=== PATIENT | female | born 1955 | race Caucasian/White ===

== ENCOUNTER 2018-09-17 11:40 | Inpatient (IN) ==
[2018-09-17] MEDS ORDERED: Albuterol 2.5 MG/3 ML NEBULIZER IH ONE (11:59)
[2018-09-17] MEDS ORDERED: cefOXitin 2,000 MG in Water for inj. (sterile) 20 ML 20 ML IVP ONE (11:59)
[2018-09-17] MEDS ORDERED: Ringers Solution, Lactated 1,000 ML IVC SCH (12:00)
[2018-09-17] MEDS ORDERED: Albuterol 2.5 MG/3 ML NEBULIZER ONE (12:04)
--- NOTE | 2018-09-17 12:29 | Anesthesia Evaluation PreOp ---
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: Denies Any Significant HX Other Medical History: Diabetes Type II, GERD, Other (Hx left breast cancer) Anesthesia History: No Prior Anesthetic Complications, Past Anesthesia (c section x 2 , daniella, hysterectomy, colonoscopy,) : No Alcohol Use: none Drug use: none Medications and Allergies Furosemide [Lasix] 40 mg PO DAILY PRN 09/11/16 [History] Gabapentin [Neurontin] 300 mg PO TID 09/11/16 [History] GlipiZIDE [Glipizide Xl] 5 mg PO DAILY 09/11/16 [History] Lisinopril 30 mg PO DAILY 09/11/16 [History] Losartan Potassium [Cozaar] 100 mg PO DAILY 09/11/16 [History] Metoprolol Tartrate [Lopressor] 50 mg PO DAILY 09/11/16 [History] Omeprazole 20 mg PO DAILY 09/11/16 [History] Potassium Chloride [Klor-Con 10] 10 meq PO DAILY 09/11/16 [History] Albuterol Sulfate [Ventolin Hfa] 18 gm IH PRN PRN 10/16/16 [History] Tiotropium [Spiriva] 1 puff IH DAILY #30 capsule 10/24/16 [Rx] Aspirin [Lo-Dose Aspirin EC] 1 tab PO DAILY #30 tablet. 12/02/17 [Rx] Oxycodone HCl/Acetaminophen [Percocet 5-325 mg Tablet] 1 each PO Q6H PRN 05/07/18 [History] Linagliptin [Tradjenta] 5 mg DAILY 09/17/18 [History] Allergy/AdvReac Type Severity Reaction Status Date / Time Iodinated Contrast- Oral and Allergy Hives Verified 05/07/18 11:40 IV Dye [Iodinated Contrast Media - Oral and] tetanus and diphtheria Allergy SWELLING Verified 05/07/18 11:40 toxoids - Meds/Allergy Pre-op Review Medications Reviewed: Yes Allergies Reviewed: Yes Beta Blockers on Current Med List: Yes (metoprolol) If Beta Blockers taken, Date/Time (Last Dose taken): 08 Anesthesia Results - Labs Laboratory Tests 09/11/18 09/11/18 09/11/18 10:40 10:40 10:40 WBC 6.7 Hgb 17.0 H Hct 49.0 H Plt Count 154 Sodium 134 L Potassium 4.1 Chloride 97 L Carbon Dioxide 29 BUN 14 Creatinine 1.03 Est GFR (Non-Af Amer) 54 L Hemoglobin A1c 6.6 H - Imaging EKG: report reviewed (SINUS BRADYCARDIA MODERATE T-WAVE ABNORMALITY, CONSIDER LATERAL ISCHEMIA) Anesthesia Exam Vital Signs/O2 Sat/Glucose, Most Recent Temp Pulse Resp BP Pulse Ox 98.6 F 65 18 133/75 95 09/17/18 12:05 09/17/18 12:05 09/17/18 12:05 09/17/18 12:05 09/17/18 12:05 Blood Glucose* 107 Weight: 90 kg NPO (# of Hours): > 8 hr - HEENT Pupil (Motor): Pupils equal Mallampati: II Teeth: Edentulous - 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
[2018-09-17] MEDS ORDERED: *HR* Propofol 200 MG/20 ML VIAL IVP ONE ×2 (12:41→12:45)
[2018-09-17] MEDS ORDERED: *HR* FentaNYL (PF) 100 MCG/2 ML VIAL ONE (12:45)
[2018-09-17] MEDS ORDERED: Lidocaine -MPF 2% 2 ML VIAL ONE (12:45)
[2018-09-17] MEDS ORDERED: Dexamethasone 4 MG/ML VIAL ONE (12:45)
[2018-09-17] MEDS ORDERED: *HR* Rocuronium Bromide 50 MG/5 ML VIAL ONE (12:45)
[2018-09-17] MEDS ORDERED: *HR* Succinylcholine 200 MG/10 ML VIAL IVP ONE (12:45)
[2018-09-17] MEDS ORDERED: *HR* Midazolam HCl 2 MG/2 ML VIAL ONE (12:45)
[2018-09-17] MEDS ORDERED: Ondansetron 4 MG/2 ML VIAL ONE (12:45)
[2018-09-17] MEDS ORDERED: Famotidine 20 MG/2 ML VIAL IVP ONE (12:47)
[2018-09-17] MEDS ORDERED: Acetaminophen IV 1,000 MG/100 ML INFUS..BTL IVPB ONE (12:47)
[2018-09-17] MEDS ORDERED: Gabapentin 300 MG CAPSULE PO ONE (12:47)
[2018-09-17] MEDS ORDERED: *HR* Labetalol 20 MG/4 ML SYRINGE IVP PRN (12:48)
[2018-09-17] MEDS ORDERED: *HR* Promethazine 25 MG/ML VIAL IVP PRN (12:48)
[2018-09-17] MEDS ORDERED: *HR* OxyCODONE Immed Rel 5 MG TABLET PO PRN (12:48)
[2018-09-17] MEDS ORDERED: Ondansetron 4 MG/2 ML VIAL IVP ONE (12:48)
[2018-09-17] MEDS ORDERED: Albuterol 2.5 MG/3 ML NEBULIZER IH PRN (12:48)
--- NOTE | 2018-09-17 12:58 | History & Physical Report ---
Date of Encounter: 09/17/18 Time of Encounter: 12:57 24 Hour HP Update - Instructions Instructions: If the History and Physical is less than 30 days old and was completed prior to A.M. admission and or procedure and has NOT been updated on calendar day of procedure please complete this update prior to performing procedure. - Update Patient reports changes in Medical Condition: No Changes in examination, assessment, or condition: No Changes in Medication: No Preop tests/diagnostics Reviewed: Yes Surgery Remains Indicated: Yes Consent for Planned Operative Procedure(s) Verified: Yes - Pre-Operative Checklist Preoperative Checklist Indicated: Yes Prophylactic Antibiotic Ordered: Yes Home Medications Include Beta David: No
[2018-09-17] MEDS ORDERED: Neostigmine Methylsulfate 3 MG/3 ML SYRINGE ONE (13:00)
[2018-09-17] MEDS ORDERED: SUGAMMADEX SODIUM 500 MG/5 ML VIAL IV ONE (15:38)
[2018-09-17] MEDS ORDERED: *HR* PHENYLEPHRINE 1,000 MCG/10 ML SYRINGE IVP ONE (16:10)
[2018-09-17] MEDS: *HR* HYDROmorphone (PF) 1 MG/ML SYRINGE IVP PRN ×2 (17:07→17:14)
--- NOTE | 2018-09-17 17:35 | Anesthesia Evaluation Post Op ---
Date of Encounter: 09/17/18 Time of Encounter: 17:35 - Vital Signs Vital Signs: Last Vital Signs Temp 99.5 F 09/17/18 17:31 Pulse 80 09/17/18 17:31 Resp 12 09/17/18 17:31 BP 137/71 09/17/18 17:31 Pulse Ox 97 09/17/18 17:31 - Lungs Lungs: Clear Ascult./Percussion - Airway Airway: Non-obstructed - Cardiovascular Regular Rate - Mental Status Mental Status: Alert & Oriented, Answers Appropriately - Pain Pain Scale: 2 - Nausea Vomiting Nausea Vomiting: Not Present - Hydration Hydration: NPO - Discharge PostOp Status: Transfer Patient to floor
[2018-09-17] MEDS ORDERED: Naloxone 0.4 MG/ML INJ IVP PRN (18:23)
[2018-09-17] MEDS ORDERED: Ondansetron 4 MG/2 ML VIAL IVP PRN (18:23)
[2018-09-17] MEDS: 0.9 % Sodium Chloride 1,000 ML IVC SCH (18:44)
[2018-09-17] MEDS: OXYCODONE Oral CONC 10 MG/0.5 ML ORAL.SYG SL PRN (18:44)
[2018-09-17 19:13] LABS: Basophils % 0.4 %; Eosinophils % 0.1 %; Hematocrit 47.2 % (35.3-44.9); Hemoglobin 15.8 g/dL (11.5-15.4); Immature Granulocytes % 0.4 % (0-4); Lymphocytes # 0.2 K/mcL (0.6-4.6); Lymphocytes % 3.6 %; Mean Corpuscular HGB Conc 33.5 g/dL (31.6-35.5); Mean Corpuscular Hemoglobin 30.8 pg (28.0-33.3); Mean Platelet Volume 9.7 fL (9.4-12.4); Monocytes # 0.1 K/mcL (0.0-1.3); Monocytes % 2.1 %; Neutrophils # 6.3 K/mcL (1.6-8.9); Platelet Count 108 K/mcL (140-400); Red Blood Count 5.13 M/mcL (3.82-4.97); Red Cell Distribution Width 12.4 % (11.5-14.5); Segmented Neutrophils % 93.4 %
[2018-09-17] MEDS: Insulin LISPRO 300 UNITS/3 ML VIAL SQ SCH (23:52)
[2018-09-17] MEDS: Ketorolac 15 MG/ML VIAL IVP SCH (23:52)
[2018-09-17] MEDS: Nicotine 21 MG PATCH.TD24 TD SCH (23:53)
[2018-09-18] MEDS: OXYCODONE Oral CONC 10 MG/0.5 ML ORAL.SYG SL PRN ×4 (01:37→20:59)
[2018-09-18] MEDS: Ketorolac 15 MG/ML VIAL IVP SCH ×3 (05:45→17:37)
[2018-09-18 06:50] LABS: BUN/Creatinine Ratio 15 (6-26); Blood Urea Nitrogen 16 mg/dL (8-23); Calcium 8.1 mg/dL (8.6-10.3); Carbon Dioxide 23 mEq/L (23-29); Chloride 98 mEq/L (98-107); Glucose 225 mg/dL (70-105); Osmolality,Calculated 280 (280-300); Sodium 131 mEq/L (136-145); eGFR For Non-African Americans 50 (> 60)
[2018-09-18] MEDS: Insulin LISPRO 300 UNITS/3 ML VIAL SQ SCH ×4 (09:28→21:01)
[2018-09-18] MEDS: 0.9 % Sodium Chloride 1,000 ML IVC SCH (09:29)
[2018-09-18] MEDS: Nicotine 21 MG PATCH.TD24 TD SCH (09:30)
--- NOTE | 2018-09-18 11:02 | General Surgery Progress Note ---
Date of Encounter: 09/18/18 Time of Encounter: 09:00 - Assessment and Plan (1) Colon polyp Current Visit: Yes Status: Acute Tubular adenoma of the descending colon which was tattooed. She is status post descending colon resection by Dr. Rivera on 09/17/2017. She is recovering remarkably well. She is tolerating a diet and is having bowel movements. We will plan for discharge in the next 24 to 48 hours pending clinical course. In the interim, Plan: Continue supportive care and discomfort management while awaiting full return of bowel function Continue G.I. and DVT prophylaxis Incentive spirometry 10 times every hour while awake Out of bed to chair TID, do not offer meal trays while in the bed Activity as tolerated Apply ice 20 minutes on 20 minutes off as needed Qualifiers: Colon polyp type: adenomatous Colon location: descending Qualified Code(s): D12.4 - Benign neoplasm of descending colon Subjective Patient reports: no new complaints, still having pain, pain is less, tolerating liquids well, flatus, bowel movement, afebrile Objective Vital Signs - Last 8 Hours Temp Pulse Resp BP Pulse Ox 09/18/18 07:28 98.0 F 67 17 128/72 91 09/18/18 03:29 98.5 F 86 16 123/73 95 Intake and Output 09/17/18 09/18/18 09/18/18 23:59 07:59 15:59 Intake Total 1480 / 1480 Output Total 2 / 2 Balance -10 / 10 1478 / 1478 Intake: IV Fluids 1000 / 1000 0.9 % Sodium Chloride 1,000 ML 1000 / 1000 @ 75 mls/hr IVC .[id number] MARY Rx #:[id number] Oral 480 / 480 Output: Urine 2 / 2 Estimated Blood Loss Other: Meal clears Percent of Meal Consumed 100% Stool Size Small Small Stool Consistency loose soft # Voids 1 # Bowel Movements 2 Weight 92 kg Blood Glucose* 350 216 213 Patient Weight 09/18/18 23:59 Weight 92 kg - General physical appearance no distress - Eyes normal ocular movement - ENT normal nares, normal mucosa, atraumatic, normocephalic - Neck Neck exam: trachea midline - Respiratory normal expansion, normal respiratory effort - Cardiovascular Cardiovascular exam: Present: RRR - Abdomen Abdomen: Present: bowel sounds present, soft, tender (Expected postoperative) - Integumentary no rash - Neurologic normal sensation - Musculoskeletal normal posture - Psychiatric oriented to time, oriented to person, oriented to place, speech is normal, mem ory intact - Labs 09/17/18 18:57 09/18/18 05:55 Diabetes panel 09/18/18 Range/Units 05:55 Sodium 131 L (136-145) mEq/L Potassium 4.0 (3.5-5.1) mEq/L Chloride 98 (98-107) mEq/L Carbon Dioxide 23 (23-29) mEq/L BUN 16 (8-23) mg/dL Creatinine 1.10 (0.60-1.20) mg/dL Glucose 225 H (70-105) mg/dL Calcium 8.1 L (8.6-10.3) mg/dL Calcium panel 09/18/18 Range/Units 05:55 Calcium 8.1 L (8.6-10.3) mg/dL Pituitary panel 09/18/18 Range/Units 05:55 Sodium 131 L (136-145) mEq/L Potassium 4.0 (3.5-5.1) mEq/L Chloride 98 (98-107) mEq/L Carbon Dioxide 23 (23-29) mEq/L BUN 16 (8-23) mg/dL Creatinine 1.10 (0.60-1.20) mg/dL Glucose 225 H (70-105) mg/dL Calcium 8.1 L (8.6-10.3) mg/dL Adrenal panel 09/18/18 Range/Units 05:55 Sodium 131 L (136-145) mEq/L Potassium 4.0 (3.5-5.1) mEq/L Chloride 98 (98-107) mEq/L Carbon Dioxide 23 (23-29) mEq/L BUN 16 (8-23) mg/dL Creatinine 1.10 (0.60-1.20) mg/dL Glucose 225 H (70-105) mg/dL Calcium 8.1 L (8.6-10.3) mg/dL - VTE Documentation of Mechanical Device: Intermittent pneumatic compression device Consult Discharge Plan - Plan Referrals: Tong Rivera DO [Partnered Physician] - 09/30/18 9:35 am Gisele Herzog CNP [Primary Care Provider] -
[2018-09-18] MEDS ORDERED: Simethicone 80 MG TAB.CHEW PO PRN (14:56)
[2018-09-18] MEDS ORDERED: Furosemide 40 MG TABLET PO PRN (16:04)
[2018-09-18] MEDS: Gabapentin 300 MG CAPSULE PO SCH (21:04)
[2018-09-19] MEDS: Ketorolac 15 MG/ML VIAL IVP SCH ×3 (01:54→12:56)
[2018-09-19] MEDS: OXYCODONE Oral CONC 10 MG/0.5 ML ORAL.SYG SL PRN ×2 (08:20→12:56)
[2018-09-19] MEDS: Nicotine 21 MG PATCH.TD24 TD SCH (08:21)
[2018-09-19] MEDS: Gabapentin 300 MG CAPSULE PO SCH (08:21)
[2018-09-19] MEDS: Insulin LISPRO 300 UNITS/3 ML VIAL SQ SCH (08:22)
[2018-09-19] MEDS ORDERED: Aspirin Enteric Coated 81 MG Tablet PO SCH (09:00)
[2018-09-19 09:24] LABS: Basophils % 0.3 %; Eosinophils # 0.1 K/mcL (0.0-0.6); Eosinophils % 1.1 %; Hemoglobin 14.8 g/dL (11.5-15.4); Immature Granulocytes % 0.6 % (0-4); Lymphocytes # 0.7 K/mcL (0.6-4.6); Lymphocytes % 11.1 %; Mean Corpuscular HGB Conc 33.6 g/dL (31.6-35.5); Mean Corpuscular Hemoglobin 30.6 pg (28.0-33.3); Mean Corpuscular Volume 90.9 fL (83.0-100.0); Mean Platelet Volume 9.9 fL (9.4-12.4); Monocytes # 0.6 K/mcL (0.0-1.3); Neutrophils # 4.8 K/mcL (1.6-8.9); Platelet Count 121 K/mcL (140-400); Red Blood Count 4.84 M/mcL (3.82-4.97); Red Cell Distribution Width 12.6 % (11.5-14.5); Segmented Neutrophils % 77.9 %
[2018-09-19 09:40] LABS: BUN/Creatinine Ratio 13 (6-26); Blood Urea Nitrogen 12 mg/dL (8-23); Calcium 9.3 mg/dL (8.6-10.3); Carbon Dioxide 32 mEq/L (23-29); Chloride 100 mEq/L (98-107); Glucose 145 mg/dL (70-105); Magnesium 1.8 mg/dL (1.6-2.6); Osmolality,Calculated 288 (280-300); Phosphorous 1.9 mg/dL (2.7-4.5); Potassium 3.7 mEq/L (3.5-5.1); Sodium 138 mEq/L (136-145); eGFR For Non-African Americans > 60 (> 60)
--- NOTE | 2018-09-19 09:48 | Discharge Summary ---
Orders not resulted at time of discharge: Pending orders 09/17/18 16:38 Surgical Pathology [PTH] Routine 09/20/18 04:00 Basic Metabolic Panel AM 0400 Complete Blood Count [HEME] AM 0400 Magnesium AM 0400 Phosphorous AM 0400 09/21/18 04:00 Basic Metabolic Panel AM 0400 Complete Blood Count [HEME] AM 0400 Magnesium AM 0400 Phosphorous AM 0400 09/22/18 04:00 Basic Metabolic Panel AM 0400 Complete Blood Count [HEME] AM 0400 Magnesium AM 0400 Phosphorous AM 0400 Date of Encounter: 09/19/18 Time of Encounter: 13:08 - Discharge Diagnosis (1) Colon polyp Priority: Primary Status: Acute Qualifiers: Colon polyp type: adenomatous Colon location: descending Qualified Code(s): D12.4 - Benign neoplasm of descending colon General Surgery Exam Initial Vital Signs Temp Pulse Resp BP Pulse Ox 98.6 F 65 18 133/75 95 09/17/18 12:05 09/17/18 12:05 09/17/18 12:05 09/17/18 12:05 09/17/18 12:05 Vital Signs Temp Pulse Resp BP Pulse Ox 09/19/18 12:08 97.9 F 71 16 165/82 93 09/19/18 07:34 97.5 F L 95 18 169/83 92 09/19/18 03:56 81 163/88 09/19/18 03:30 97.7 F 93 17 188/91 90 09/18/18 23:26 97.7 F 84 18 152/80 91 09/18/18 19:03 98.0 F 98 17 163/84 91 09/18/18 16:50 98.2 F 75 18 157/80 91 Intake and Output 09/18/18 09/19/18 09/19/18 23:59 07:59 15:59 Intake Total 120 / 120 1120 / 1120 Balance 120 / 120 1120 / 1120 Intake: IV Fluids 1000 / 1000 Oral 120 / 120 120 / 120 Other: Meal Dinner Breakfast Percent of Meal Consumed 100% 100% # Voids 1 1 Blood Glucose* 196 145 128 VITAL SIGNS: Reviewed. See [facility] GENERAL: In no apparent distress. HEENT: Normocephalic, atraumatic, pupils are equal and reactive, extraocular motions intact, oropharynx is pink and moist, there is no neck adenopathy or JVD noted. CHEST/RESPIRATORY: The thorax is free from signs of trauma. Lung sounds: clear to auscultation, normal respiratory effort CARDIAC: Regular rate and rhythm. Normal S1 and S2, without murmurs, gallops, or rubs. VASCULAR: No Edema. 2+ peripheral pulses. ABDOMEN: soft, expected postoperative tenderness, active bowel sounds INCISION: Surgical incision is clean, dry, and intact. There are no signs of cellulitis or infection noted. MUSCULOSKELETAL: Good range of motion of all major joints. Extremities without clubbing, cyanosis or edema. NEUROLOGIC EXAM: Alert and oriented x 3. Speech normal. Follows commands. PSYCHIATRIC: Mood normal. SKIN: No rash or lesions. - Hospital Course Hospital course: Ms. Faye is a 63 year old female who presented for elective descending colectomy due to unresectable descending colon polyp. Her hospital course has been uncomplicated. She is ambulating and voiding without difficulty, tolerating a diet without nausea or vomiting, vital signs are stable, and she is afebrile. We will begin discharge planning to home with a follow-up in approximately 2 weeks. She is advised to continue her home chronic narcotics and provided with an additional prescription for ibuprofen and Colace. - Time Spent with Patient Total time spent providing and/or coordinating discharge services: - Discharge Medications Prescriptions: New Ibuprofen 800 mg PO Q8H PRN #30 tablet PRN Reason: Postsurgical pain Docusate Sodium [Colace] 100 mg PO BID PRN #30 capsule PRN Reason: Contstipation Continue Potassium Chloride [Klor-Con 10] 10 meq PO DAILY PRN PRN Reason: LOW POTASSIUM Metoprolol Tartrate [Lopressor] 50 mg PO DAILY Furosemide [Lasix] 40 mg PO DAILY PRN PRN Reason: Fluid Retention Albuterol Sulfate [Ventolin Hfa] 2 puff IH Q6H PRN PRN Reason: Shortness Of Breath Oxycodone HCl/Acetaminophen [Percocet 5-325 mg Tablet] 1 each PO Q6H PRN PRN Reason: Pain Linagliptin [Tradjenta] 5 mg DAILY Aspirin [Lo-Dose Aspirin EC] 81 mg PO DAILY Fluticasone/Vilanterol [Breo Ellipta 200-25 Mcg INH] 1 puff IH DAILY Gabapentin 600 mg PO TID glipiZIDE [Glipizide] 10 mg PO BID Losartan/Hydrochlorothiazide [Losartan-Hctz 100-25 mg Tab] 1 tab PO DAILY raNITIdine HCl [Zantac] 150 mg PO BID Polyethylene Glycol 3350 17 gm PO DAILY PRN PRN Reason: Constipation Amlodipine Besylate 5 mg PO DAILY [place]-3/Dha/Epa/Fish Oil [[facility]vs Fish Oil 1,000 mg Softgel] 1 cap PO DAILY Cholecalciferol (D-3) [Vitamin D] 1,000 unit PO DAILY Atorvastatin Calcium [Lipitor] 20 mg PO DAILY Home Medications: Furosemide [Lasix] 40 mg PO DAILY PRN 09/11/16 [History] Metoprolol Tartrate [Lopressor] 50 mg PO DAILY 09/11/16 [History] Potassium Chloride [Klor-Con 10] 10 meq PO DAILY PRN 09/11/16 [History] Albuterol Sulfate [Ventolin Hfa] 2 puff IH Q6H PRN 10/16/16 [History] Oxycodone HCl/Acetaminophen [Percocet 5-325 mg Tablet] 1 each PO Q6H PRN 05/07/18 [History] Linagliptin [Tradjenta] 5 mg DAILY 09/17/18 [History] Amlodipine Besylate 5 mg PO DAILY 09/18/18 [History] Aspirin [Lo-Dose Aspirin EC] 81 mg PO DAILY 09/18/18 [History] Atorvastatin Calcium [Lipitor] 20 mg PO DAILY 09/18/18 [History] Cholecalciferol (D-3) [Vitamin D] 1,000 unit PO DAILY 09/18/18 [History] Fluticasone/Vilanterol [Breo Ellipta 200-25 Mcg INH] 1 puff IH DAILY 09/18/18 [History] Gabapentin 600 mg PO TID 09/18/18 [History] Losartan/Hydrochlorothiazide [Losartan-Hctz 100-25 mg Tab] 1 tab PO DAILY 09/18/18 [History] [place]-3/Dha/Epa/Fish Oil [Cvs Fish Oil 1,000 mg Softgel] 1 cap PO DAILY 09/18/18 [History] Polyethylene Glycol 3350 17 gm PO DAILY PRN 09/18/18 [History] glipiZIDE [Glipizide] 10 mg PO BID 09/18/18 [History] raNITIdine HCl [Zantac] 150 mg PO BID 09/18/18 [History] Docusate Sodium [Colace] 100 mg PO BID PRN #30 capsule 09/19/18 [Rx] Ibuprofen 800 mg PO Q8H PRN #30 tablet 09/19/18 [Rx] Allergies/Adverse Reactions: Allergy/AdvReac Type Severity Reaction Status Date / Time Iodinated Contrast- Oral and Allergy Hives Verified 05/07/18 11:40 IV Dye [Iodinated Contrast Media - Oral and] tetanus and diphtheria Allergy SWELLING Verified 05/07/18 11:40 toxoids Date of admission: 09/17/18 17:54 Primary care physician: Gisele Herzog Consults: 09/17/18 18:03 Consult to Physician Extender [CONS] Routine Reason for SW Consult: Reccomended O2 at HS but patient states she can not afford it so she doesn't wear it Discharging clinician: Tong Vega) Anticipated date of discharge: 09/19/18 Labs on day of discharge: Labs from last 24 hours 09/19/18 09/19/18 09/18/18 08:46 08:46 19:03 WBC 6.2 RBC 4.84 Hgb 14.8 Hct 44.0 MCV 90.9 MCH 30.6 MCHC 33.6 RDW 12.6 Plt Count 121 L MPV 9.9 Immature Gran % 0.6 Seg Neutrophils % 77.9 Lymphocytes % 11.1 Monocytes % 9.0 Eosinophils % 1.1 Basophils % 0.3 Neutrophils # 4.8 Lymphocytes # 0.7 Monocytes # 0.6 Eosinophils # 0.1 Basophils # 0.0 Sodium 138 Potassium 3.7 Chloride 100 Carbon Dioxide 32 H BUN 12 Creatinine 0.89 Est GFR ( Amer) > 60 Est GFR (Non-Af Amer) > 60 BUN/Creatinine Ratio 13 Glucose 145 H POC Glucose 196 H Calculated Osmolality 288 Calcium 9.3 Phosphorus 1.9 L Magnesium 1.8 09/18/18 09/18/18 09/18/18 16:54 12:12 10:39 WBC RBC Hgb Hct MCV MCH MCHC RDW Plt Count MPV Immature Gran % Seg Neutrophils % Lymphocytes % Monocytes % Eosinophils % Basophils % Neutrophils # Lymphocytes # Monocytes # Eosinophils # Basophils # Sodium Potassium Chloride Carbon Dioxide BUN Creatinine Est GFR ( Amer) Est GFR (Non-Af Amer) BUN/Creatinine Ratio Glucose POC Glucose 167 H 139 H 213 H Calculated Osmolality Calcium Phosphorus Magnesium 09/17/18 23:32 WBC RBC Hgb Hct MCV MCH MCHC RDW Plt Count MPV Immature Gran % Seg Neutrophils % Lymphocytes % Monocytes % Eosinophils % Basophils % Neutrophils # Lymphocytes # Monocytes # Eosinophils # Basophils # Sodium Potassium Chloride Carbon Dioxide BUN Creatinine Est GFR ( Amer) Est GFR (Non-Af Amer) BUN/Creatinine Ratio Glucose POC Glucose 350 H Calculated Osmolality Calcium Phosphorus Magnesium - Patient Status Disposition: Home, Self-Care Condition: Good Functional capacity at discharge: independent ambulation Overall status at discharge: patient is progressing back to baseline - Discharge Instructions Instructions: Colectomy (DC), Laparoscopic Bowel Resection (DC) Follow Up With: Tong Rivera DO [Partnered Physician] - 09/30/18 9:35 am Gisele Herzog CNP [Primary Care Provider] - Additional Instructions: General Surgical Discharge Instructions 1. No pushing, pulling, or lifting greater than 15 lbs for 4 weeks (depending upon procedure). 2. You may shower beginning today, but no tub baths, soaking, or swimming for 2 weeks. 3. You may resume driving when you are off narcotics and are safe to react in a car. 4. Take ibuprofen every 8 hours for discomfort. If this does not relieve discomfort, you may take your normal at home dose of needed Percocet. Take narcotics as directed. Do not take more narcotics then directed and do not share your narcotics with any other person. Do not drink alcohol while on narcotics. 5. Take stool softeners (Colace) or a water based laxative (Miralax) while taking narcotics. You may hold for loose stools. 6. Report any fevers greater than 100.5F, increase abdominal discomfort, drainage that looks like pus, increased redness or pain at the surgical site, or any vomiting. 7. Report any pain in the calves, shortness of breath, or rapid heartbeat. 8. Follow-up in the office as directed. 9. If you were prescribed antibiotics, do not stop them without talking to your provider. - Diet and Activity Activity: increase activity as tolerated Diet: other (soft diet for 3- days then resume your normal diet as tolerated)
--- NOTE | 2018-09-19 11:35 | Operative Note ---
Date of procedure: 09/17/18 Pre-op diagnosis: Descending colon polyp Post-op diagnosis: other (Transverse colon polyp) Procedure: Robotic Transvere colectomy with stapled anastomosis Anesthesia: MEDHATA Surgeon: Tong Rivera Was there an patient care assistant present: Yes Relief Charge Nurse: Niki Duenas Estimated blood loss (cc): 25 Specimen: Transverse colon Condition: stable Disposition: floor Procedure in Detail: After informed consent, the patient was taken the operating placed in supine position. After adequate sedation and anesthesia the abdomen was prepped and draped. An incision was made to the patient's right of midline. A 12 mm cannula was placed. This was done under direct visualization. Once I had entered the abdomen and pneumoperitoneum was created. There were 2 additional 8 mm cannulas placed in the right anterior and posterior axillary lines. A third cannula was placed in the left lower quadrant. A 5 mm cannulas placed in the suprapubic region. The robot was docked over the patient's right hip. Once a camera was placed 2 additional cautery a grasper's were placed as was a vessel sealer. A tattoo monique was easily identified. Initially it was thought that the lesion was in the descending colon. I found that was in the distal transverse. Therefore this area was dissected free. The colon was stapled proximally and distally above and below the tattoo hamm. The mesentery was taken down with a vessel sealer. Once this is completed the transverse colon was approximated side by side. 2 enterotomies were created with robotic scissors. A 60 mm stapler was then placed into the colon to perform a [id number] functional end -to-end anastomosis. A common enterotomy was closed with 2 individual 2-0 silk sutures. Once her tied secured the omentum was tacked to the colon anastomosis. Once this completed a counterincision was made in the patient's right abdomen at the camera port. It was approximately 2 inches in width. The abdominal wall was spread and the transverse colon was removed. It was sent to pathology. It had been opened previously and the polyp was identified within the specimen. The fascia was closed with loop PDS suture. The 12 mm cannula site in the left lower quadrant was closed with 0 Vicryl. The skin was closed with melina. She tolerated the procedure well.
[2018-09-19 12:09] VITALS: BP 165/82
== END 2018-09-19 15:10 | disposition home or self-care (01) | DRG 331 ==
LOC: SAMDAY 11:40 → 3ANU 17:54
PROVIDERS: ADMIT Surgery; ATTEND Surgery

== ENCOUNTER 2020-08-01 09:15 | Inpatient (IN) ==
[2020-08-01 09:49] LABS: Hematocrit 39.3 % (35.3-44.9); Hemoglobin 12.2 g/dL (11.5-15.4); Mean Corpuscular Hemoglobin 24.8 pg (28.0-33.3); Mean Platelet Volume 9.5 fL (9.4-12.4); Platelet Count 146 K/mcL (140-400); Red Blood Count 4.91 M/mcL (3.82-4.97); Red Cell Distribution Width 16.7 % (11.5-14.5); White Blood Count 4.6 K/mcL (4.3-11.1)
[2020-08-01 09:54] LABS: INR 1.1; Prothrombin Time 12.4 Seconds (9.4-12.1)
[2020-08-01 09:57] LABS: Activated Partial Thrombo Time 27.5 Seconds (26.0-36.0)
[2020-08-01 09:59] LABS: Bilirubin,Urine Negative (Negative); Blood,Urine Negative (Negative); Clarity,Urine Clear (Clear); Color,Urine Light-Yellow (Yellow); Glucose,Urine (UA) Normal (Normal); Ketones,Urine Negative (Negative); Leukocyte Esterase,Urine Negative (Negative); Nitrite,Urine Negative (Negative); Protein,Urine Negative (Neg-Trace); Urobilinogen,Urine Normal (Normal)
[2020-08-01 10:10] LABS: BUN/Creatinine Ratio 10 (6-26); Blood Urea Nitrogen 9 mg/dL (8-23); Calcium 9.4 mg/dL (8.6-10.3); Carbon Dioxide 32 mEq/L (23-29); Chloride 86 mEq/L (98-107); Glucose 122 mg/dL (70-105); Osmolality,Calculated 258 (280-300); Potassium 4.2 mEq/L (3.5-5.1); Sodium 124 mEq/L (136-145); eGFR For African Americans > 60 (> 60); eGFR For Non-African Americans > 60 (> 60)
[2020-08-01 10:11] LABS: Troponin I < 0.03 ng/mL (< 0.04)
[2020-08-01] MEDS ORDERED: Ondansetron 4 MG/2 ML VIAL IVP PRN (13:46)
[2020-08-01] MEDS ORDERED: *HR* Dextrose 50 % in Water (Vial) 50 ML VIAL IVP PRN (13:46)
[2020-08-01] MEDS ORDERED: D5% in Water 1,000 ML IVC PRN (13:46)
[2020-08-01] MEDS ORDERED: Naloxone 0.4 MG/ML INJ IVP PRN (13:46)
[2020-08-01] MEDS ORDERED: Dextrose Gel 15 GM/37.5 ML TUBE PO PRN ×2 (13:46)
[2020-08-01] MEDS: 0.9 % Sodium Chloride 1,000 ML IVC SCH (15:15)
[2020-08-01] MEDS: Insulin LISPRO 300 UNITS/3 ML VIAL SUBQ SCH ×2 (17:37→21:15)
[2020-08-01] MEDS: *HR* Metoprolol 5 MG/5 ML VIAL IVP PRN (17:43)
[2020-08-01 18:42] LABS: Sodium, Urine 101.2 mEq/L
[2020-08-01] MEDS: *HR* OxyCODONE/APAP 5/325 TABLET PO PRN (18:43)
[2020-08-01 19:23] LABS: Bilirubin,Urine Negative (Negative); Blood,Urine Negative (Negative); Clarity,Urine Clear (Clear); Color,Urine Colorless (Yellow); Glucose,Urine (UA) Normal (Normal); Ketones,Urine Negative (Negative); Leukocyte Esterase,Urine Negative (Negative); Nitrite,Urine Negative (Negative); PH,Urine 7.5 pH Units (5.0-8.0); Protein,Urine Negative (Neg-Trace); Specific Gravity,Urine 1.009 (1.010-1.025); Urobilinogen,Urine Normal (Normal)
[2020-08-01] MEDS: OXcarbazepine 150 MG TABLET PO SCH (21:14)
[2020-08-02] MEDS: Acetaminophen 325 MG TABLET PO PRN ×2 (01:09→11:38)
[2020-08-02] MEDS: 0.9 % Sodium Chloride 1,000 ML IVC SCH (03:29)
[2020-08-02] MEDS: *HR* Metoprolol 5 MG/5 ML VIAL IVP PRN (05:16)
[2020-08-02 06:06] LABS: Basophils % 0.9 %; Eosinophils # 0.1 K/mcL (0.0-0.6); Eosinophils % 2.4 %; Hematocrit 36.5 % (35.3-44.9); Hemoglobin 11.4 g/dL (11.5-15.4); Immature Granulocytes % 0.2 % (0-4); Lymphocytes # 0.5 K/mcL (0.6-4.6); Lymphocytes % 10.9 %; Mean Corpuscular HGB Conc 31.2 g/dL (31.6-35.5); Mean Corpuscular Hemoglobin 24.5 pg (28.0-33.3); Mean Corpuscular Volume 78.3 fL (83.0-100.0); Mean Platelet Volume 9.2 fL (9.4-12.4); Monocytes # 0.5 K/mcL (0.0-1.3); Neutrophils # 3.4 K/mcL (1.6-8.9); Platelet Count 134 K/mcL (140-400); Red Blood Count 4.66 M/mcL (3.82-4.97); Red Cell Distribution Width 16.7 % (11.5-14.5); Segmented Neutrophils % 75.6 %; White Blood Count 4.5 K/mcL (4.3-11.1)
[2020-08-02 06:28] LABS: BUN/Creatinine Ratio 12 (6-26); Blood Urea Nitrogen 10 mg/dL (8-23); Calcium 9.1 mg/dL (8.6-10.3); Carbon Dioxide 28 mEq/L (23-29); Chloride 89 mEq/L (98-107); Glucose 83 mg/dL (70-105); Osmolality,Calculated 256 (280-300); Potassium 3.9 mEq/L (3.5-5.1); Sodium 124 mEq/L (136-145); eGFR For African Americans > 60 (> 60); eGFR For Non-African Americans > 60 (> 60)
[2020-08-02] MEDS: Gabapentin 300 MG CAPSULE PO SCH ×3 (07:53→20:48)
[2020-08-02] MEDS: Cyanocobalamin (B-12) 1,000 MCG TABLET PO SCH (07:53)
[2020-08-02] MEDS: *HR* OxyCODONE/APAP 5/325 TABLET PO PRN (07:53)
[2020-08-02] MEDS: Anastrozole 1 MG TABLET PO SCH (07:54)
[2020-08-02] MEDS: FLUoxetine 20 MG CAPSULE PO SCH (07:54)
[2020-08-02] MEDS: OXcarbazepine 150 MG TABLET PO SCH ×2 (07:54→20:41)
[2020-08-02] MEDS: Loratadine 10 MG TABLET PO SCH (07:55)
[2020-08-02] MEDS: Insulin LISPRO 300 UNITS/3 ML VIAL SUBQ SCH ×4 (07:55→20:48)
[2020-08-02] MEDS ORDERED: Aspirin Enteric Coated 81 MG Tablet PO SCH (09:00)
[2020-08-02] MEDS: Budesonide/Formoterol 160/4.5 1 PUFF INH IH SCH ×2 (10:26→22:22)
[2020-08-02] MEDS: Nicotine 21 MG PATCH.TD24 TD SCH (11:34)
[2020-08-02] MEDS: cloNIDine HCL 0.1 MG TABLET PO SCH ×2 (15:36→20:46)
[2020-08-02] MEDS ORDERED: Perflutren Lipid Microsphere 1.3 ML in 0.9 % Sodium Chloride 8.7 ML IVP PRN (17:59)
[2020-08-02] MEDS: hydrALAZINE 25 MG TABLET PO SCH (18:01)
[2020-08-02] MEDS: tiZANidine 4 MG TABLET PO SCH (20:45)
[2020-08-02] MEDS: traZODone 50 MG TABLET PO SCH (20:47)
[2020-08-02] MEDS ORDERED: 0.9 % Sodium Chloride 1,000 ML ONE (23:30)
[2020-08-02] MEDS ORDERED: 0.9 % Sodium Chloride 1,000 ML IVC ONE (23:59)
[2020-08-03] MEDS ORDERED: 0.9 % Sodium Chloride 1,000 ML IVC ONE (00:07)
[2020-08-03 02:11] LABS: Hematocrit 37.7 % (35.3-44.9); Hemoglobin 11.5 g/dL (11.5-15.4); Mean Corpuscular HGB Conc 30.5 g/dL (31.6-35.5); Mean Corpuscular Volume 78.7 fL (83.0-100.0); Platelet Count 159 K/mcL (140-400); Red Blood Count 4.79 M/mcL (3.82-4.97); Red Cell Distribution Width 16.8 % (11.5-14.5); White Blood Count 5.8 K/mcL (4.3-11.1)
[2020-08-03 02:48] LABS: BUN/Creatinine Ratio 11 (6-26); Blood Urea Nitrogen 12 mg/dL (8-23); Calcium 8.8 mg/dL (8.6-10.3); Carbon Dioxide 22 mEq/L (23-29); Chloride 92 mEq/L (98-107); Glucose 110 mg/dL (70-105); Magnesium 1.8 mg/dL (1.6-2.6); Osmolality,Calculated 258 (280-300); Phosphorous 3.9 mg/dL (2.7-4.5); Potassium 3.8 mEq/L (3.5-5.1); Sodium 124 mEq/L (136-145); eGFR For African Americans > 60 (> 60); eGFR For Non-African Americans 52 (> 60)
[2020-08-03] MEDS: Insulin LISPRO 300 UNITS/3 ML VIAL SUBQ SCH ×4 (07:29→19:55)
[2020-08-03] MEDS ORDERED: Furosemide 20 MG TABLET PO SCH (09:00)
[2020-08-03] MEDS: *HR* OxyCODONE/APAP 5/325 TABLET PO PRN ×2 (09:50→16:31)
[2020-08-03] MEDS: FLUoxetine 20 MG CAPSULE PO SCH (09:50)
[2020-08-03] MEDS: Sennosides/Docusate Sodium TABLET PO SCH (09:51)
[2020-08-03] MEDS: OXcarbazepine 150 MG TABLET PO SCH ×2 (09:51→19:55)
[2020-08-03] MEDS: Gabapentin 300 MG CAPSULE PO SCH ×3 (09:51→19:55)
[2020-08-03] MEDS: Nicotine 21 MG PATCH.TD24 TD SCH (09:53)
[2020-08-03] MEDS: Loratadine 10 MG TABLET PO SCH (09:53)
[2020-08-03] MEDS: hydrALAZINE 25 MG TABLET PO SCH ×4 (09:53→23:32)
[2020-08-03] MEDS: Cyanocobalamin (B-12) 1,000 MCG TABLET PO SCH (10:03)
[2020-08-03] MEDS: Anastrozole 1 MG TABLET PO SCH (10:38)
[2020-08-03] MEDS: Budesonide/Formoterol 160/4.5 1 PUFF INH IH SCH ×2 (10:43→20:07)
[2020-08-03] MEDS: traZODone 50 MG TABLET PO SCH (19:55)
[2020-08-03] MEDS: tiZANidine 4 MG TABLET PO SCH (19:55)
[2020-08-03] MEDS ORDERED: Melatonin 3 MG TABLET PO PRN (20:15)
[2020-08-04] MEDS: *HR* OxyCODONE/APAP 5/325 TABLET PO PRN ×2 (02:54→18:12)
[2020-08-04 02:56] LABS: Basophils % 0.6 %; Eosinophils # 0.1 K/mcL (0.0-0.6); Eosinophils % 2.3 %; Hematocrit 35.9 % (35.3-44.9); Hemoglobin 10.9 g/dL (11.5-15.4); Immature Granulocytes % 0.4 % (0-4); Lymphocytes # 0.7 K/mcL (0.6-4.6); Mean Corpuscular HGB Conc 30.4 g/dL (31.6-35.5); Mean Corpuscular Hemoglobin 24.3 pg (28.0-33.3); Mean Platelet Volume 9.2 fL (9.4-12.4); Monocytes # 0.5 K/mcL (0.0-1.3); Monocytes % 9.5 %; Neutrophils # 3.8 K/mcL (1.6-8.9); Platelet Count 129 K/mcL (140-400); Red Blood Count 4.49 M/mcL (3.82-4.97); Red Cell Distribution Width 17.1 % (11.5-14.5); Segmented Neutrophils % 74.2 %; White Blood Count 5.1 K/mcL (4.3-11.1)
[2020-08-04 03:13] LABS: BUN/Creatinine Ratio 20 (6-26); Blood Urea Nitrogen 21 mg/dL (8-23); Calcium 9.2 mg/dL (8.6-10.3); Carbon Dioxide 25 mEq/L (23-29); Chloride 93 mEq/L (98-107); Glucose 90 mg/dL (70-105); Osmolality,Calculated 261 (280-300); Potassium 3.9 mEq/L (3.5-5.1); Sodium 124 mEq/L (136-145); eGFR For African Americans > 60 (> 60); eGFR For Non-African Americans 54 (> 60)
[2020-08-04] MEDS: Budesonide/Formoterol 160/4.5 1 PUFF INH IH SCH ×2 (07:53→20:20)
[2020-08-04] MEDS: Sennosides/Docusate Sodium TABLET PO SCH (08:37)
[2020-08-04] MEDS: Insulin LISPRO 300 UNITS/3 ML VIAL SUBQ SCH ×5 (08:37→20:31)
[2020-08-04] MEDS: Gabapentin 300 MG CAPSULE PO SCH ×3 (08:37→20:29)
[2020-08-04] MEDS: hydrALAZINE 25 MG TABLET PO SCH ×2 (08:38→15:04)
[2020-08-04] MEDS: OXcarbazepine 150 MG TABLET PO SCH ×2 (08:38→20:29)
[2020-08-04] MEDS: Loratadine 10 MG TABLET PO SCH (08:39)
[2020-08-04] MEDS: Anastrozole 1 MG TABLET PO SCH (08:39)
[2020-08-04] MEDS: Cyanocobalamin (B-12) 1,000 MCG TABLET PO SCH (08:39)
[2020-08-04] MEDS: Nicotine 21 MG PATCH.TD24 TD SCH (08:41)
[2020-08-04] MEDS: FLUoxetine 20 MG CAPSULE PO SCH (09:00)
[2020-08-04 09:29] LABS: Bilirubin,Urine Negative (Negative); Blood,Urine Negative (Negative); Budding Yeast,Urine Few per hpf (None Seen); Calcium Oxalate Crystals,Urine Present; Clarity,Urine Turbid (Clear); Color,Urine Yellow (Yellow); Glucose,Urine (UA) 50 mg/dL (Normal); Ketones,Urine Negative (Negative); Leukocyte Esterase,Urine Negative (Negative); Mucus,Urine Few per lpf (None-Few); Nitrite,Urine Negative (Negative); PH,Urine 6.5 pH Units (5.0-8.0); Protein,Urine 100 mg/dL (Neg-Trace); Renal Epithelial Cells,Urine Moderate per hpf (None-Few); Specific Gravity,Urine 1.021 (1.010-1.025); Squamous Epithelial Cell,Urine Few per hpf (None-Few); Transitional Epi Cells,Urine Few per hpf (None-Few); Urobilinogen,Urine Normal (Normal)
[2020-08-04] MEDS ORDERED: Tolvaptan 15 MG TABLET PO ONE (11:32)
[2020-08-04] MEDS: tiZANidine 4 MG TABLET PO SCH (20:30)
[2020-08-04] MEDS: traZODone 50 MG TABLET PO SCH (20:30)
[2020-08-05] MEDS: hydrALAZINE 25 MG TABLET PO SCH (00:47)
[2020-08-05 03:32] LABS: Basophils % 0.5 %; Eosinophils # 0.1 K/mcL (0.0-0.6); Eosinophils % 2.3 %; Hematocrit 40.8 % (35.3-44.9); Hemoglobin 12.3 g/dL (11.5-15.4); Immature Granulocytes % 0.5 % (0-4); Lymphocytes # 0.4 K/mcL (0.6-4.6); Lymphocytes % 10.3 %; Mean Corpuscular HGB Conc 30.1 g/dL (31.6-35.5); Mean Corpuscular Hemoglobin 24.7 pg (28.0-33.3); Mean Corpuscular Volume 82.1 fL (83.0-100.0); Mean Platelet Volume 9.2 fL (9.4-12.4); Monocytes # 0.5 K/mcL (0.0-1.3); Monocytes % 10.7 %; Neutrophils # 3.2 K/mcL (1.6-8.9); Platelet Count 132 K/mcL (140-400); Red Blood Count 4.97 M/mcL (3.82-4.97); Segmented Neutrophils % 75.7 %; White Blood Count 4.3 K/mcL (4.3-11.1)
[2020-08-05 03:56] LABS: BUN/Creatinine Ratio 19 (6-26); Blood Urea Nitrogen 17 mg/dL (8-23); Carbon Dioxide 26 mEq/L (23-29); Chloride 99 mEq/L (98-107); Glucose 151 mg/dL (70-105); Osmolality,Calculated 278 (280-300); Potassium 4.3 mEq/L (3.5-5.1); Sodium 132 mEq/L (136-145); eGFR For African Americans > 60 (> 60); eGFR For Non-African Americans > 60 (> 60)
[2020-08-05] MEDS: *HR* OxyCODONE/APAP 5/325 TABLET PO PRN ×2 (06:10→18:54)
[2020-08-05] MEDS: Budesonide/Formoterol 160/4.5 1 PUFF INH IH SCH ×2 (08:01→19:41)
[2020-08-05] MEDS: FLUoxetine 20 MG CAPSULE PO SCH (09:20)
[2020-08-05] MEDS: Loratadine 10 MG TABLET PO SCH (09:20)
[2020-08-05] MEDS: Gabapentin 300 MG CAPSULE PO SCH ×3 (09:20→21:09)
[2020-08-05] MEDS: amLODIPine 5 MG TABLET PO SCH (09:21)
[2020-08-05] MEDS: OXcarbazepine 150 MG TABLET PO SCH ×2 (09:21→21:09)
[2020-08-05] MEDS: Anastrozole 1 MG TABLET PO SCH (09:21)
[2020-08-05] MEDS: Sennosides/Docusate Sodium TABLET PO SCH (09:22)
[2020-08-05] MEDS: Cyanocobalamin (B-12) 1,000 MCG TABLET PO SCH (09:24)
[2020-08-05] MEDS: Nicotine 21 MG PATCH.TD24 TD SCH (09:26)
[2020-08-05] MEDS: Insulin LISPRO 300 UNITS/3 ML VIAL SUBQ SCH ×4 (09:30→21:08)
[2020-08-05] MEDS: Acetaminophen 325 MG TABLET PO PRN (11:54)
[2020-08-05] MEDS: traZODone 50 MG TABLET PO SCH (21:09)
[2020-08-05] MEDS: tiZANidine 4 MG TABLET PO SCH (21:09)
[2020-08-06 02:39] LABS: Basophils % 0.7 %; Eosinophils # 0.1 K/mcL (0.0-0.6); Immature Granulocytes % 0.2 % (0-4); Lymphocytes # 0.7 K/mcL (0.6-4.6); Lymphocytes % 14.9 %; Mean Corpuscular HGB Conc 30.3 g/dL (31.6-35.5); Mean Corpuscular Hemoglobin 24.7 pg (28.0-33.3); Mean Corpuscular Volume 81.6 fL (83.0-100.0); Mean Platelet Volume 8.8 fL (9.4-12.4); Monocytes # 0.5 K/mcL (0.0-1.3); Monocytes % 10.4 %; Neutrophils # 3.2 K/mcL (1.6-8.9); Platelet Count 129 K/mcL (140-400); Red Blood Count 4.29 M/mcL (3.82-4.97); Red Cell Distribution Width 16.9 % (11.5-14.5); Segmented Neutrophils % 71.8 %; White Blood Count 4.4 K/mcL (4.3-11.1)
[2020-08-06 02:40] LABS: Hemoglobin 10.6 g/dL (11.5-15.4)
[2020-08-06 02:59] LABS: BUN/Creatinine Ratio 16 (6-26); Blood Urea Nitrogen 13 mg/dL (8-23); Calcium 9.5 mg/dL (8.6-10.3); Carbon Dioxide 26 mEq/L (23-29); Chloride 97 mEq/L (98-107); Glucose 127 mg/dL (70-105); Osmolality,Calculated 272 (280-300); Sodium 130 mEq/L (136-145); eGFR For African Americans > 60 (> 60); eGFR For Non-African Americans > 60 (> 60)
[2020-08-06] MEDS: Insulin LISPRO 300 UNITS/3 ML VIAL SUBQ SCH (07:31)
[2020-08-06] MEDS: Budesonide/Formoterol 160/4.5 1 PUFF INH IH SCH (07:56)
[2020-08-06] MEDS: *HR* OxyCODONE/APAP 5/325 TABLET PO PRN (08:29)
[2020-08-06] MEDS: Sennosides/Docusate Sodium TABLET PO SCH (08:29)
[2020-08-06] MEDS: Gabapentin 300 MG CAPSULE PO SCH (08:29)
[2020-08-06] MEDS: Nicotine 21 MG PATCH.TD24 TD SCH (08:29)
[2020-08-06] MEDS: Loratadine 10 MG TABLET PO SCH (08:30)
[2020-08-06] MEDS: FLUoxetine 20 MG CAPSULE PO SCH (08:30)
[2020-08-06] MEDS: amLODIPine 5 MG TABLET PO SCH (08:31)
[2020-08-06] MEDS: Anastrozole 1 MG TABLET PO SCH (08:31)
[2020-08-06] MEDS: OXcarbazepine 150 MG TABLET PO SCH (08:32)
[2020-08-06] MEDS: Cyanocobalamin (B-12) 1,000 MCG TABLET PO SCH (08:33)
[2020-08-06 11:28] VITALS: BP 159/83
== END 2020-08-06 12:05 | disposition home health service (06) | DRG 426 ==
LOC: 3ANU 09:15 → EMEROOARM 09:15 → SUATTDRO 11:21 → 3ANU 11:49 → 2NNU 08-03 01:28
PROVIDERS: ADMIT Internal Medicine; ATTEND Student in an Organized Health Care Education/Training Program

== ENCOUNTER 2020-09-13 09:19 | Observation (INO) ==
[2020-09-13 10:00] LABS: Basophils # 0.1 K/mcL (0.0-0.2); Basophils % 0.9 %; Eosinophils # 0.1 K/mcL (0.0-0.6); Eosinophils % 2.2 %; Hematocrit 43.3 % (35.3-44.9); Hemoglobin 13.5 g/dL (11.5-15.4); Immature Granulocytes % 0.4 % (0-4); Lymphocytes # 0.6 K/mcL (0.6-4.6); Lymphocytes % 11.1 %; Mean Corpuscular HGB Conc 31.2 g/dL (31.6-35.5); Mean Corpuscular Hemoglobin 24.3 pg (28.0-33.3); Mean Platelet Volume 8.8 fL (9.4-12.4); Monocytes # 0.6 K/mcL (0.0-1.3); Monocytes % 10.6 %; Platelet Count 225 K/mcL (140-400); Red Blood Count 5.55 M/mcL (3.82-4.97); Red Cell Distribution Width 15.3 % (11.5-14.5); Segmented Neutrophils % 74.8 %; White Blood Count 5.4 K/mcL (4.3-11.1)
[2020-09-13 10:26] LABS: Alanine Aminotransferase 10 Units/L (7-52); Albumin 4.3 g/dL (3.5-5.7); Albumin/Globulin Ratio 1.4 (1.1-2.2); Alkaline Phosphatase 61 Units/L (34-104); Aspartate Amino Transferase 13 Units/L (13-39); BUN/Creatinine Ratio 9 (6-26); Bilirubin,Direct 0.1 mg/dL (0.0-0.2); Bilirubin,Indirect 0.4 mg/dL (0.0-1.0); Bilirubin,Total 0.5 mg/dL (0.3-1.0); Blood Urea Nitrogen 7 mg/dL (8-23); Calcium 9.3 mg/dL (8.6-10.3); Carbon Dioxide 28 mEq/L (23-29); Chloride 92 mEq/L (98-107); Ethanol < 10 mg/dL (Less than 10); Globulin 3.1 g/dL (2.4-3.5); Glucose 126 mg/dL (70-105); Osmolality,Calculated 268 (280-300); Potassium 3.7 mEq/L (3.5-5.1); Sodium 129 mEq/L (136-145); Total Protein 7.4 g/dL (6.4-8.9); Troponin I < 0.03 ng/mL (< 0.04); eGFR For African Americans > 60 (> 60); eGFR For Non-African Americans > 60 (> 60)
[2020-09-13] MEDS ORDERED: Naloxone 0.4 MG/ML INJ IVP PRN (10:49)
[2020-09-13] MEDS: Ondansetron ODT 4 MG TAB.RAPDIS PO PRN ×2 (11:30→18:11)
[2020-09-13] MEDS: *HR* HYDROcodone/Acet 5/325 mg TABLET PO PRN ×2 (14:03→22:06)
[2020-09-13] MEDS ORDERED: D5% in Water 1,000 ML IVC PRN (14:32)
[2020-09-13] MEDS ORDERED: Dextrose Gel 15 GM/37.5 ML TUBE PO PRN ×2 (14:32)
[2020-09-13] MEDS ORDERED: *HR* Dextrose 50 % in Water (Vial) 50 ML VIAL IVP PRN (14:32)
[2020-09-13 15:04] LABS: Amphetamine Screen,Urine Negative ng/mL (Cutoff=1000); Barbiturate Screen,Urine Negative ng/mL (Cutoff=200); Benzodiazepines Screen,Urine Negative ng/mL (Cutoff=200); Cannabinoid Screen,Urine Negative ng/mL (Cutoff = 50); Cocaine Screen,Urine Negative ng/mL (Cutoff= 300); Opiate Screen,Urine Positive ng/mL (Cutoff=300); Phencyclidine Screen,Urine Negative ng/mL (Cutoff=25)
[2020-09-13 15:06] LABS: Bilirubin,Urine Negative (Negative); Blood,Urine Negative (Negative); Clarity,Urine Clear (Clear); Color,Urine Light-Yellow (Yellow); Glucose,Urine (UA) Normal (Normal); Ketones,Urine Negative (Negative); Leukocyte Esterase,Urine Moderate (Negative); Nitrite,Urine Positive (Negative); PH,Urine 6.5 pH Units (5.0-8.0); Protein,Urine 30 mg/dL (Neg-Trace); RBC,Urine 0-3 per hpf (0-3); Specific Gravity,Urine 1.008 (1.010-1.025); Squamous Epithelial Cell,Urine Moderate per hpf (None-Few); Urobilinogen,Urine Normal (Normal)
[2020-09-13] MEDS: Nicotine 21 MG PATCH.TD24 TD SCH (15:41)
[2020-09-13] MEDS: Gabapentin 300 MG CAPSULE PO SCH ×2 (15:42→20:07)
[2020-09-13] MEDS: *HR* Heparin 5,000 UNIT/ML VIAL SQ SCH ×2 (15:42→22:56)
[2020-09-13] MEDS: Insulin LISPRO 300 UNITS/3 ML VIAL SUBQ SCH ×2 (15:55→20:08)
[2020-09-13] MEDS: Acetaminophen 325 MG TABLET PO PRN (16:51)
[2020-09-13] MEDS: niCARdipine 20 MG/200 ML MLS IVC SCH ×2 (20:02→22:43)
[2020-09-13] MEDS: OXcarbazepine 150 MG TABLET PO SCH (20:07)
[2020-09-13] MEDS: tiZANidine 4 MG TABLET PO SCH (20:07)
[2020-09-13] MEDS: traZODone 50 MG TABLET PO SCH (22:06)
[2020-09-13] MEDS: Budesonide/Formoterol 160/4.5 1 PUFF INH IH SCH (22:44)
[2020-09-13] MEDS ORDERED: 0.9 % Sodium Chloride 500 ML IVC ONE (23:20)
[2020-09-14 01:32] LABS: Basophils % 0.9 %; Eosinophils # 0.2 K/mcL (0.0-0.6); Eosinophils % 4.5 %; Hematocrit 36.9 % (35.3-44.9); Immature Granulocytes % 0.7 % (0-4); Lymphocytes # 0.7 K/mcL (0.6-4.6); Lymphocytes % 15.6 %; Mean Corpuscular HGB Conc 30.9 g/dL (31.6-35.5); Mean Corpuscular Hemoglobin 24.8 pg (28.0-33.3); Mean Corpuscular Volume 80.4 fL (83.0-100.0); Mean Platelet Volume 9.3 fL (9.4-12.4); Monocytes # 0.5 K/mcL (0.0-1.3); Monocytes % 11.1 %; Platelet Count 179 K/mcL (140-400); Red Blood Count 4.59 M/mcL (3.82-4.97); Red Cell Distribution Width 15.3 % (11.5-14.5); Segmented Neutrophils % 67.2 %; White Blood Count 4.4 K/mcL (4.3-11.1)
[2020-09-14 01:34] LABS: Hemoglobin 11.4 g/dL (11.5-15.4)
[2020-09-14 01:51] LABS: BUN/Creatinine Ratio 12 (6-26); Blood Urea Nitrogen 10 mg/dL (8-23); Calcium 8.8 mg/dL (8.6-10.3); Carbon Dioxide 27 mEq/L (23-29); Chloride 93 mEq/L (98-107); Glucose 89 mg/dL (70-105); Osmolality,Calculated 263 (280-300); Potassium 3.1 mEq/L (3.5-5.1); Sodium 127 mEq/L (136-145); eGFR For African Americans > 60 (> 60); eGFR For Non-African Americans > 60 (> 60)
[2020-09-14] MEDS: niCARdipine 20 MG/200 ML MLS IVC SCH ×5 (01:54→17:05)
[2020-09-14] MEDS: *HR* Heparin 5,000 UNIT/ML VIAL SQ SCH ×3 (07:29→23:36)
[2020-09-14] MEDS: Cyanocobalamin (B-12) 1,000 MCG TABLET PO SCH (07:30)
[2020-09-14] MEDS: Nicotine 21 MG PATCH.TD24 TD SCH (07:30)
[2020-09-14] MEDS: OXcarbazepine 150 MG TABLET PO SCH ×2 (07:31→21:27)
[2020-09-14] MEDS: FLUoxetine 20 MG CAPSULE PO SCH (07:31)
[2020-09-14] MEDS: tiZANidine 4 MG TABLET PO SCH ×2 (07:31→21:28)
[2020-09-14] MEDS: amLODIPine 5 MG TABLET PO SCH (07:31)
[2020-09-14] MEDS: Gabapentin 300 MG CAPSULE PO SCH ×3 (07:31→21:26)
[2020-09-14] MEDS: Anastrozole 1 MG TABLET PO SCH (07:32)
[2020-09-14] MEDS: Loratadine 10 MG TABLET PO SCH (07:32)
[2020-09-14] MEDS: Insulin LISPRO 300 UNITS/3 ML VIAL SUBQ SCH ×4 (07:45→21:27)
[2020-09-14] MEDS: Sennosides/Docusate Sodium TABLET PO SCH (07:47)
[2020-09-14] MEDS: Budesonide/Formoterol 160/4.5 1 PUFF INH IH SCH ×2 (07:59→21:21)
[2020-09-14] MEDS: Potassium Chloride Elixir 20 MEQ/15 ML UDC PO SCH ×3 (09:06→21:35)
[2020-09-14] MEDS: Acetaminophen 325 MG TABLET PO PRN (14:39)
[2020-09-14] MEDS: *HR* HYDROcodone/Acet 5/325 mg TABLET PO PRN (17:08)
[2020-09-14] MEDS ORDERED: QUEtiapine Fumarate 25 MG TABLET PO SCH (21:00)
[2020-09-14] MEDS: traZODone 50 MG TABLET PO SCH (21:26)
[2020-09-15 01:14] LABS: Eosinophils # 0.1 K/mcL (0.0-0.6); Eosinophils % 2.8 %; Hemoglobin 10.4 g/dL (11.5-15.4); Immature Granulocytes % 0.5 % (0-4); Lymphocytes # 0.8 K/mcL (0.6-4.6); Lymphocytes % 20.3 %; Mean Corpuscular HGB Conc 29.7 g/dL (31.6-35.5); Mean Corpuscular Hemoglobin 24.1 pg (28.0-33.3); Mean Corpuscular Volume 81.2 fL (83.0-100.0); Mean Platelet Volume 9.4 fL (9.4-12.4); Monocytes # 0.5 K/mcL (0.0-1.3); Monocytes % 11.8 %; Neutrophils # 2.5 K/mcL (1.6-8.9); Platelet Count 155 K/mcL (140-400); Red Blood Count 4.31 M/mcL (3.82-4.97); Red Cell Distribution Width 15.4 % (11.5-14.5); Segmented Neutrophils % 63.6 %
[2020-09-15 01:40] LABS: Calcium 8.8 mg/dL (8.6-10.3)
[2020-09-15] MEDS: niCARdipine 20 MG/200 ML MLS IVC SCH ×4 (03:29→11:32)
[2020-09-15] MEDS: Insulin LISPRO 300 UNITS/3 ML VIAL SUBQ SCH ×2 (07:59→11:46)
[2020-09-15] MEDS: Budesonide/Formoterol 160/4.5 1 PUFF INH IH SCH (08:16)
[2020-09-15] MEDS: Loratadine 10 MG TABLET PO SCH (10:42)
[2020-09-15] MEDS: tiZANidine 4 MG TABLET PO SCH (10:42)
[2020-09-15] MEDS: *HR* Heparin 5,000 UNIT/ML VIAL SQ SCH (10:42)
[2020-09-15] MEDS: FLUoxetine 20 MG CAPSULE PO SCH (10:43)
[2020-09-15] MEDS: Cyanocobalamin (B-12) 1,000 MCG TABLET PO SCH (10:43)
[2020-09-15] MEDS: OXcarbazepine 150 MG TABLET PO SCH (10:43)
[2020-09-15] MEDS: Sennosides/Docusate Sodium TABLET PO SCH (10:43)
[2020-09-15] MEDS: amLODIPine 5 MG TABLET PO SCH (10:43)
[2020-09-15] MEDS: Gabapentin 300 MG CAPSULE PO SCH ×2 (10:43→15:23)
[2020-09-15] MEDS: Anastrozole 1 MG TABLET PO SCH (10:44)
[2020-09-15] MEDS: Nicotine 21 MG PATCH.TD24 TD SCH (10:44)
[2020-09-15 14:57] VITALS: BP 156/67
== END 2020-09-15 15:50 | disposition home health service (06) ==
LOC: 2NENU 09:19 → EMEROOARM 09:19 → SUATTDRO 11:35 → 2NENU 12:22 → 2NNU 20:50
PROVIDERS: ADMIT Internal Medicine; ATTEND Internal Medicine

== ENCOUNTER 2020-10-04 16:54 | Inpatient (IN) ==
[2020-10-04 19:33] LABS: BUN/Creatinine Ratio 12 (6-26); Blood Urea Nitrogen 9 mg/dL (8-23); Calcium 9.5 mg/dL (8.6-10.3); Carbon Dioxide 26 mEq/L (23-29); Chloride 89 mEq/L (98-107); Glucose 79 mg/dL (70-105); Magnesium 1.9 mg/dL (1.6-2.6); Osmolality,Calculated 250 (280-300); Phosphorous 3.6 mg/dL (2.7-4.5); Potassium 4.3 mEq/L (3.5-5.1); Sodium 121 mEq/L (136-145); eGFR For African Americans > 60 (> 60); eGFR For Non-African Americans > 60 (> 60)
[2020-10-04 20:17] LABS: Bilirubin,Urine Negative (Negative); Blood,Urine Negative (Negative); Clarity,Urine Clear (Clear); Color,Urine Light-Yellow (Yellow); Glucose,Urine (UA) Normal (Normal); Ketones,Urine Negative (Negative); Leukocyte Esterase,Urine Negative (Negative); Nitrite,Urine Negative (Negative); PH,Urine 6.5 pH Units (5.0-8.0); Protein,Urine Trace mg/dL (Neg-Trace); Urobilinogen,Urine Normal (Normal)
[2020-10-04 20:25] LABS: Sodium, Urine 64.4 mEq/L
[2020-10-04] MEDS ORDERED: Naloxone 0.4 MG/ML INJ IVP PRN (21:39)
[2020-10-04] MEDS ORDERED: Acetaminophen 325 MG TABLET PO PRN (21:39)
[2020-10-04] MEDS ORDERED: Ondansetron 4 MG/2 ML VIAL IVP PRN (21:39)
[2020-10-04] MEDS ORDERED: *HR* Dextrose 50 % in Water (Vial) 50 ML VIAL IVP PRN (21:42)
[2020-10-04] MEDS ORDERED: Dextrose Gel 15 GM/37.5 ML TUBE PO PRN ×2 (21:42)
[2020-10-04] MEDS ORDERED: D5% in Water 1,000 ML IVC PRN (21:42)
[2020-10-04 23:25] LABS: BUN/Creatinine Ratio 12 (6-26); Blood Urea Nitrogen 9 mg/dL (8-23); Calcium 9.2 mg/dL (8.6-10.3); Carbon Dioxide 27 mEq/L (23-29); Chloride 88 mEq/L (98-107); Glucose 92 mg/dL (70-105); Osmolality,Calculated 254 (280-300); Sodium 123 mEq/L (136-145); eGFR For African Americans > 60 (> 60); eGFR For Non-African Americans > 60 (> 60)
[2020-10-05] MEDS: Melatonin 3 MG TABLET PO PRN ×2 (00:32→20:30)
[2020-10-05] MEDS ORDERED: Nicotine 21 MG PATCH.TD24 TD PRN (02:57)
[2020-10-05 04:34] LABS: Basophils % 0.8 %; Eosinophils # 0.1 K/mcL (0.0-0.6); Immature Granulocytes % 1.1 % (0-4); Lymphocytes # 0.4 K/mcL (0.6-4.6); Lymphocytes % 11.5 %; Mean Corpuscular HGB Conc 31.6 g/dL (31.6-35.5); Mean Corpuscular Hemoglobin 24.8 pg (28.0-33.3); Mean Corpuscular Volume 78.7 fL (83.0-100.0); Mean Platelet Volume 8.7 fL (9.4-12.4); Monocytes # 0.4 K/mcL (0.0-1.3); Monocytes % 9.8 %; Neutrophils # 2.7 K/mcL (1.6-8.9); Platelet Count 143 K/mcL (140-400); Red Blood Count 4.83 M/mcL (3.82-4.97); Red Cell Distribution Width 16.4 % (11.5-14.5); Segmented Neutrophils % 73.8 %; White Blood Count 3.7 K/mcL (4.3-11.1)
[2020-10-05 04:55] LABS: Alanine Aminotransferase 10 Units/L (7-52); Albumin 3.9 g/dL (3.5-5.7); Albumin/Globulin Ratio 1.4 (1.1-2.2); Alkaline Phosphatase 58 Units/L (34-104); Aspartate Amino Transferase 12 Units/L (13-39); BUN/Creatinine Ratio 13 (6-26); Bilirubin,Total 0.4 mg/dL (0.3-1.0); Blood Urea Nitrogen 9 mg/dL (8-23); Calcium 9.5 mg/dL (8.6-10.3); Carbon Dioxide 27 mEq/L (23-29); Chloride 90 mEq/L (98-107); Globulin 2.7 g/dL (2.4-3.5); Glucose 106 mg/dL (70-105); Osmolality,Calculated 257 (280-300); Phosphorous 3.9 mg/dL (2.7-4.5); Potassium 4.2 mEq/L (3.5-5.1); Sodium 124 mEq/L (136-145); Total Protein 6.6 g/dL (6.4-8.9); eGFR For African Americans > 60 (> 60); eGFR For Non-African Americans > 60 (> 60)
[2020-10-05] MEDS: *HR* HYDROcodone/Acet 5/325 mg TABLET PO PRN ×2 (05:04→20:30)
[2020-10-05] MEDS: *HR* Heparin 5,000 UNIT/ML VIAL SQ SCH ×2 (05:05→17:51)
[2020-10-05] MEDS: Insulin LISPRO 300 UNITS/3 ML VIAL SUBQ SCH ×4 (07:16→16:37)
[2020-10-05] MEDS: tiZANidine 4 MG TABLET PO PRN ×2 (12:41→20:31)
[2020-10-05] MEDS: amLODIPine 5 MG TABLET PO SCH (15:17)
[2020-10-05] MEDS: Gabapentin 300 MG CAPSULE PO SCH ×2 (15:17→20:31)
[2020-10-05] MEDS: Acetaminophen 325 MG TABLET PO PRN (17:53)
[2020-10-05] MEDS: Budesonide/Formoterol 160/4.5 1 PUFF INH IH SCH (20:20)
[2020-10-05] MEDS: QUEtiapine Fumarate 25 MG TABLET PO SCH (20:30)
[2020-10-05] MEDS: OXcarbazepine 150 MG TABLET PO SCH (20:30)
[2020-10-06 03:09] LABS: Basophils % 0.6 %; Eosinophils # 0.1 K/mcL (0.0-0.6); Hematocrit 38.4 % (35.3-44.9); Hemoglobin 12.2 g/dL (11.5-15.4); Immature Granulocytes % 0.6 % (0-4); Lymphocytes # 0.8 K/mcL (0.6-4.6); Lymphocytes % 21.1 %; Mean Corpuscular HGB Conc 31.8 g/dL (31.6-35.5); Mean Corpuscular Hemoglobin 25.1 pg (28.0-33.3); Mean Corpuscular Volume 78.9 fL (83.0-100.0); Mean Platelet Volume 8.8 fL (9.4-12.4); Monocytes # 0.5 K/mcL (0.0-1.3); Monocytes % 14.7 %; Neutrophils # 2.2 K/mcL (1.6-8.9); Platelet Count 133 K/mcL (140-400); Red Blood Count 4.87 M/mcL (3.82-4.97); Red Cell Distribution Width 16.4 % (11.5-14.5); White Blood Count 3.6 K/mcL (4.3-11.1)
[2020-10-06 03:28] LABS: BUN/Creatinine Ratio 15 (6-26); Blood Urea Nitrogen 11 mg/dL (8-23); Calcium 9.5 mg/dL (8.6-10.3); Carbon Dioxide 26 mEq/L (23-29); Chloride 87 mEq/L (98-107); Glucose 91 mg/dL (70-105); Osmolality,Calculated 253 (280-300); Potassium 3.7 mEq/L (3.5-5.1); Sodium 122 mEq/L (136-145); eGFR For African Americans > 60 (> 60); eGFR For Non-African Americans > 60 (> 60)
[2020-10-06] MEDS: *HR* HYDROcodone/Acet 5/325 mg TABLET PO PRN ×3 (05:37→21:48)
[2020-10-06] MEDS: *HR* Heparin 5,000 UNIT/ML VIAL SQ SCH ×2 (05:38→16:40)
[2020-10-06] MEDS: Insulin LISPRO 300 UNITS/3 ML VIAL SUBQ SCH ×3 (07:21→16:40)
[2020-10-06] MEDS: Budesonide/Formoterol 160/4.5 1 PUFF INH IH SCH ×2 (08:15→20:11)
[2020-10-06] MEDS: Cyanocobalamin (B-12) 1,000 MCG TABLET PO SCH (08:27)
[2020-10-06] MEDS: Thiamine (B-1) 100 MG TABLET PO SCH (08:27)
[2020-10-06] MEDS: tiZANidine 4 MG TABLET PO PRN ×2 (08:27→16:39)
[2020-10-06] MEDS: Loratadine 10 MG TABLET PO SCH (08:28)
[2020-10-06] MEDS: Anastrozole 1 MG TABLET PO SCH (08:28)
[2020-10-06] MEDS: amLODIPine 5 MG TABLET PO SCH (08:28)
[2020-10-06] MEDS: Gabapentin 300 MG CAPSULE PO SCH ×3 (08:28→19:58)
[2020-10-06] MEDS: OXcarbazepine 150 MG TABLET PO SCH ×2 (08:28→19:58)
[2020-10-06] MEDS: Sennosides/Docusate Sodium TABLET PO SCH (08:28)
[2020-10-06] MEDS: FLUoxetine 20 MG CAPSULE PO SCH (08:28)
[2020-10-06] MEDS: 0.9 % Sodium Chloride 1,000 ML IVC SCH (13:51)
[2020-10-06] MEDS: QUEtiapine Fumarate 25 MG TABLET PO SCH (19:58)
[2020-10-06] MEDS: levETIRAcetam 250 MG in 0.9 % Sodium Chloride 100 ML IVPB SCH (20:02)
[2020-10-07] MEDS: *HR* Heparin 5,000 UNIT/ML VIAL SQ SCH ×2 (05:20→18:17)
[2020-10-07 06:25] LABS: BUN/Creatinine Ratio 20 (6-26); Blood Urea Nitrogen 16 mg/dL (8-23); Calcium 8.9 mg/dL (8.6-10.3); Carbon Dioxide 22 mEq/L (23-29); Chloride 90 mEq/L (98-107); Glucose 86 mg/dL (70-105); Osmolality,Calculated 250 (280-300); Potassium 4.2 mEq/L (3.5-5.1); Sodium 120 mEq/L (136-145); eGFR For African Americans > 60 (> 60); eGFR For Non-African Americans > 60 (> 60)
[2020-10-07] MEDS: Insulin LISPRO 300 UNITS/3 ML VIAL SUBQ SCH ×3 (07:27→16:32)
[2020-10-07] MEDS: Budesonide/Formoterol 160/4.5 1 PUFF INH IH SCH ×2 (07:45→20:43)
[2020-10-07] MEDS: Albuterol 2.5 MG/3 ML NEBULIZER IH PRN ×2 (07:47→20:42)
[2020-10-07] MEDS: amLODIPine 5 MG TABLET PO SCH (07:51)
[2020-10-07] MEDS: Sennosides/Docusate Sodium TABLET PO SCH (07:51)
[2020-10-07] MEDS: FLUoxetine 20 MG CAPSULE PO SCH (07:52)
[2020-10-07] MEDS: Thiamine (B-1) 100 MG TABLET PO SCH (07:52)
[2020-10-07] MEDS: Cyanocobalamin (B-12) 1,000 MCG TABLET PO SCH (07:52)
[2020-10-07] MEDS: Gabapentin 300 MG CAPSULE PO SCH ×3 (07:52→19:50)
[2020-10-07] MEDS: *HR* HYDROcodone/Acet 5/325 mg TABLET PO PRN ×2 (07:52→18:18)
[2020-10-07] MEDS: Anastrozole 1 MG TABLET PO SCH (07:53)
[2020-10-07] MEDS: OXcarbazepine 150 MG TABLET PO SCH (07:53)
[2020-10-07] MEDS: Loratadine 10 MG TABLET PO SCH (07:53)
[2020-10-07] MEDS: levETIRAcetam 250 MG in 0.9 % Sodium Chloride 100 ML IVPB SCH (09:34)
[2020-10-07] MEDS: tiZANidine 4 MG TABLET PO PRN ×2 (11:02→19:51)
[2020-10-07 13:24] LABS: Basophils % 0.6 %; Eosinophils # 0.1 K/mcL (0.0-0.6); Hematocrit 35.4 % (35.3-44.9); Hemoglobin 10.8 g/dL (11.5-15.4); Immature Granulocytes % 0.3 % (0-4); Lymphocytes # 0.5 K/mcL (0.6-4.6); Lymphocytes % 14.9 %; Mean Corpuscular HGB Conc 30.5 g/dL (31.6-35.5); Mean Corpuscular Hemoglobin 24.4 pg (28.0-33.3); Mean Corpuscular Volume 80.1 fL (83.0-100.0); Mean Platelet Volume 8.8 fL (9.4-12.4); Monocytes # 0.4 K/mcL (0.0-1.3); Monocytes % 10.9 %; Neutrophils # 2.5 K/mcL (1.6-8.9); Platelet Count 138 K/mcL (140-400); Red Blood Count 4.42 M/mcL (3.82-4.97); Segmented Neutrophils % 71.3 %; White Blood Count 3.5 K/mcL (4.3-11.1)
[2020-10-07] MEDS: levETIRAcetam 250 MG TABLET PO SCH (18:17)
[2020-10-07] MEDS: QUEtiapine Fumarate 25 MG TABLET PO SCH (19:50)
[2020-10-07] MEDS: 0.9 % Sodium Chloride 1,000 ML IVC SCH (19:57)
[2020-10-08] MEDS: *HR* Heparin 5,000 UNIT/ML VIAL SQ SCH ×2 (05:20→17:48)
[2020-10-08] MEDS: levETIRAcetam 250 MG TABLET PO SCH ×2 (05:20→17:47)
[2020-10-08] MEDS: *HR* HYDROcodone/Acet 5/325 mg TABLET PO PRN ×2 (05:21→15:06)
[2020-10-08] MEDS: Insulin LISPRO 300 UNITS/3 ML VIAL SUBQ SCH ×3 (07:09→16:54)
[2020-10-08] MEDS: Budesonide/Formoterol 160/4.5 1 PUFF INH IH SCH ×2 (07:48→20:38)
[2020-10-08] MEDS: Acetaminophen 325 MG TABLET PO PRN (08:23)
[2020-10-08] MEDS: FLUoxetine 20 MG CAPSULE PO SCH (08:23)
[2020-10-08] MEDS: Thiamine (B-1) 100 MG TABLET PO SCH (08:24)
[2020-10-08] MEDS: Sennosides/Docusate Sodium TABLET PO SCH (08:24)
[2020-10-08] MEDS: Cyanocobalamin (B-12) 1,000 MCG TABLET PO SCH (08:24)
[2020-10-08] MEDS: Gabapentin 300 MG CAPSULE PO SCH ×3 (08:24→20:41)
[2020-10-08] MEDS: amLODIPine 5 MG TABLET PO SCH (08:24)
[2020-10-08] MEDS: Anastrozole 1 MG TABLET PO SCH (08:24)
[2020-10-08] MEDS: Loratadine 10 MG TABLET PO SCH (08:24)
[2020-10-08] MEDS: 0.9 % Sodium Chloride 1,000 ML IVC SCH (14:59)
[2020-10-08] MEDS: QUEtiapine Fumarate 25 MG TABLET PO SCH (20:41)
[2020-10-08] MEDS: tiZANidine 4 MG TABLET PO PRN (20:41)
[2020-10-09 03:15] LABS: BUN/Creatinine Ratio 15 (6-26); Blood Urea Nitrogen 13 mg/dL (8-23); Calcium 9.5 mg/dL (8.6-10.3); Carbon Dioxide 27 mEq/L (23-29); Chloride 93 mEq/L (98-107); Glucose 105 mg/dL (70-105); Osmolality,Calculated 266 (280-300); Potassium 4.2 mEq/L (3.5-5.1); Sodium 128 mEq/L (136-145); eGFR For African Americans > 60 (> 60); eGFR For Non-African Americans > 60 (> 60)
[2020-10-09] MEDS: levETIRAcetam 250 MG TABLET PO SCH (05:14)
[2020-10-09] MEDS: *HR* Heparin 5,000 UNIT/ML VIAL SQ SCH (05:14)
[2020-10-09] MEDS: *HR* HYDROcodone/Acet 5/325 mg TABLET PO PRN (05:14)
[2020-10-09 07:06] VITALS: BP 150/88
[2020-10-09] MEDS: Insulin LISPRO 300 UNITS/3 ML VIAL SUBQ SCH (07:19)
[2020-10-09] MEDS: Budesonide/Formoterol 160/4.5 1 PUFF INH IH SCH (08:00)
[2020-10-09] MEDS: amLODIPine 5 MG TABLET PO SCH (09:15)
[2020-10-09] MEDS: FLUoxetine 20 MG CAPSULE PO SCH (09:16)
[2020-10-09] MEDS: Sennosides/Docusate Sodium TABLET PO SCH (09:16)
[2020-10-09] MEDS: Thiamine (B-1) 100 MG TABLET PO SCH (09:16)
[2020-10-09] MEDS: Cyanocobalamin (B-12) 1,000 MCG TABLET PO SCH (09:17)
[2020-10-09] MEDS: Anastrozole 1 MG TABLET PO SCH (09:17)
[2020-10-09] MEDS: Gabapentin 300 MG CAPSULE PO SCH (09:17)
[2020-10-09] MEDS: Loratadine 10 MG TABLET PO SCH (09:17)
== END 2020-10-09 15:17 | disposition home health service (06) | DRG 426 ==
LOC: EMEROOARM 16:54 → 2ANU 16:54 → SUATTDRO 22:30 → 2ANU 22:53
PROVIDERS: ADMIT Internal Medicine; ATTEND Internal Medicine

== ENCOUNTER 2020-12-26 11:04 | Observation (INO) ==
[2020-12-26 12:11] LABS: Basophils % 0.7 %; Eosinophils # 0.1 K/mcL (0.0-0.6); Hematocrit 37.6 % (35.3-44.9); Hemoglobin 11.4 g/dL (11.5-15.4); Immature Granulocytes % 0.2 % (0-4); Lymphocytes # 0.7 K/mcL (0.6-4.6); Lymphocytes % 15.9 %; Mean Corpuscular HGB Conc 30.3 g/dL (31.6-35.5); Mean Corpuscular Hemoglobin 24.3 pg (28.0-33.3); Mean Platelet Volume 10.1 fL (9.4-12.4); Monocytes # 0.4 K/mcL (0.0-1.3); Monocytes % 8.7 %; Neutrophils # 3.3 K/mcL (1.6-8.9); Platelet Count 171 K/mcL (140-400); Red Cell Distribution Width 15.2 % (11.5-14.5); Segmented Neutrophils % 72.5 %; White Blood Count 4.6 K/mcL (4.3-11.1)
[2020-12-26 12:25] LABS: Alanine Aminotransferase 14 Units/L (7-52); Albumin/Globulin Ratio 1.5 (1.1-2.2); Alkaline Phosphatase 58 Units/L (34-104); Aspartate Amino Transferase 15 Units/L (13-39); BUN/Creatinine Ratio 12 (6-26); Bilirubin,Direct 0.1 mg/dL (0.0-0.2); Bilirubin,Indirect 0.4 mg/dL (0.0-1.0); Bilirubin,Total 0.5 mg/dL (0.3-1.0); Blood Urea Nitrogen 11 mg/dL (8-23); Calcium 9.3 mg/dL (8.6-10.3); Carbon Dioxide 28 mEq/L (23-29); Chloride 99 mEq/L (98-107); Ethanol < 10 mg/dL (Less than 10); Globulin 2.7 g/dL (2.4-3.5); Glucose 165 mg/dL (70-105); Osmolality,Calculated 285 (280-300); Potassium 3.9 mEq/L (3.5-5.1); Sodium 136 mEq/L (136-145); Total Protein 6.7 g/dL (6.4-8.9); Troponin I < 0.03 ng/mL (< 0.04); eGFR For African Americans > 60 (> 60); eGFR For Non-African Americans 59 (> 60)
[2020-12-26 12:27] LABS: Bilirubin,Urine Negative (Negative); Blood,Urine Negative (Negative); Clarity,Urine Clear (Clear); Color,Urine Colorless (Yellow); Glucose,Urine (UA) Normal (Normal); Ketones,Urine Negative (Negative); Leukocyte Esterase,Urine Negative (Negative); Nitrite,Urine Negative (Negative); Protein,Urine Negative (Neg-Trace); Specific Gravity,Urine 1.009 (1.010-1.025); Urobilinogen,Urine Normal (Normal)
[2020-12-26 12:42] LABS: Amphetamine Screen,Urine Negative ng/mL (Cutoff=1000); Barbiturate Screen,Urine Negative ng/mL (Cutoff=200); Benzodiazepines Screen,Urine Negative ng/mL (Cutoff=200); Cannabinoid Screen,Urine Negative ng/mL (Cutoff = 50); Cocaine Screen,Urine Negative ng/mL (Cutoff= 300); Opiate Screen,Urine Positive ng/mL (Cutoff=300); Phencyclidine Screen,Urine Negative ng/mL (Cutoff=25)
[2020-12-26] MEDS ORDERED: Naloxone 0.4 MG/ML INJ IVP PRN (15:00)
[2020-12-26] MEDS ORDERED: Dextrose Gel 15 GM/37.5 ML TUBE PO PRN ×2 (15:03)
[2020-12-26] MEDS ORDERED: D5% in Water 1,000 ML IVC PRN (15:03)
[2020-12-26] MEDS ORDERED: *HR* Dextrose 50 % in Water (Vial) 50 ML VIAL IVP PRN (15:03)
[2020-12-26] MEDS: Nicotine 7 MG PATCH.TD24 TD SCH (15:45)
[2020-12-26] MEDS: Aspirin 81 MG TAB.CHEW PO SCH (15:49)
[2020-12-26] MEDS: Insulin LISPRO 300 UNITS/3 ML VIAL SUBQ SCH ×2 (16:17→21:10)
[2020-12-26] MEDS ORDERED: Perflutren Lipid Microsphere 1.3 ML in 0.9 % Sodium Chloride 8.7 ML IVP PRN (19:30)
[2020-12-26] MEDS ORDERED: Acetaminophen IV 1,000 MG/100 ML BAG IVPB ONE (20:27)
[2020-12-26] MEDS ORDERED: Ondansetron 4 MG/2 ML VIAL IVP PRN (22:43)
[2020-12-27 06:44] LABS: Basophils % 0.7 %; Eosinophils # 0.1 K/mcL (0.0-0.6); Eosinophils % 1.6 %; Hematocrit 39.9 % (35.3-44.9); Hemoglobin 11.6 g/dL (11.5-15.4); Immature Granulocytes % 0.2 % (0-4); Lymphocytes # 0.4 K/mcL (0.6-4.6); Lymphocytes % 9.7 %; Mean Corpuscular HGB Conc 29.1 g/dL (31.6-35.5); Mean Corpuscular Hemoglobin 23.2 pg (28.0-33.3); Mean Corpuscular Volume 79.8 fL (83.0-100.0); Mean Platelet Volume 9.8 fL (9.4-12.4); Monocytes # 0.3 K/mcL (0.0-1.3); Monocytes % 6.8 %; Neutrophils # 3.6 K/mcL (1.6-8.9); Platelet Count 154 K/mcL (140-400); Red Cell Distribution Width 14.9 % (11.5-14.5); White Blood Count 4.4 K/mcL (4.3-11.1)
[2020-12-27 07:06] LABS: BUN/Creatinine Ratio 10 (6-26); Blood Urea Nitrogen 9 mg/dL (8-23); Calcium 9.6 mg/dL (8.6-10.3); Carbon Dioxide 32 mEq/L (23-29); Chloride 97 mEq/L (98-107); Chol/HDL Ratio 4.7 (0-4.9); Cholesterol 184 mg/dL (< 200); Glucose 156 mg/dL (70-105); HDL Cholesterol 39 mg/dL (40-59); LDL Cholesterol,Calculated 85 mg/dL (< 100); Osmolality,Calculated 280 (280-300); Sodium 134 mEq/L (136-145); Triglycerides 300 mg/dL (< 150); eGFR For African Americans > 60 (> 60); eGFR For Non-African Americans > 60 (> 60)
[2020-12-27] MEDS ORDERED: tiZANidine 4 MG TABLET PO PRN (09:00)
[2020-12-27] MEDS: Insulin LISPRO 300 UNITS/3 ML VIAL SUBQ SCH ×4 (09:09→21:28)
[2020-12-27] MEDS: Aspirin 81 MG TAB.CHEW PO SCH (09:32)
[2020-12-27] MEDS: Cyanocobalamin (B-12) 1,000 MCG TABLET PO SCH (09:32)
[2020-12-27] MEDS: FLUoxetine 20 MG CAPSULE PO SCH (09:32)
[2020-12-27] MEDS: Sennosides/Docusate Sodium TABLET PO SCH (09:32)
[2020-12-27] MEDS: *HR* HYDROcodone/Acet 5/325 mg TABLET PO PRN ×2 (09:32→17:50)
[2020-12-27] MEDS: Nicotine 7 MG PATCH.TD24 TD SCH (09:33)
[2020-12-27] MEDS: Anastrozole 1 MG TABLET PO SCH (09:33)
[2020-12-27] MEDS: Gabapentin 300 MG CAPSULE PO SCH ×3 (09:33→20:39)
[2020-12-27] MEDS: Loratadine 10 MG TABLET PO SCH (09:33)
[2020-12-27] MEDS: Budesonide/Formoterol 160/4.5 1 PUFF INH IH SCH ×2 (10:29→20:14)
[2020-12-27] MEDS: levETIRAcetam 250 MG TABLET PO SCH (18:49)
[2020-12-27] MEDS ORDERED: QUEtiapine Fumarate 25 MG TABLET PO SCH (21:00)
[2020-12-27 21:33] LABS: Estimated Average Glucose 128 mg/dl; Hemoglobin A1C 6.1 %
[2020-12-28] MEDS: levETIRAcetam 250 MG TABLET PO SCH (04:55)
[2020-12-28] MEDS: *HR* HYDROcodone/Acet 5/325 mg TABLET PO PRN ×2 (04:55→16:05)
[2020-12-28 06:04] LABS: Basophils % 0.3 %; Eosinophils # 0.1 K/mcL (0.0-0.6); Eosinophils % 3.2 %; Hematocrit 36.9 % (35.3-44.9); Hemoglobin 10.8 g/dL (11.5-15.4); Immature Granulocytes % 0.3 % (0-4); Lymphocytes # 0.6 K/mcL (0.6-4.6); Lymphocytes % 17.7 %; Mean Corpuscular HGB Conc 29.3 g/dL (31.6-35.5); Mean Corpuscular Hemoglobin 23.4 pg (28.0-33.3); Mean Corpuscular Volume 79.9 fL (83.0-100.0); Mean Platelet Volume 9.4 fL (9.4-12.4); Monocytes # 0.4 K/mcL (0.0-1.3); Monocytes % 11.9 %; Neutrophils # 2.3 K/mcL (1.6-8.9); Platelet Count 138 K/mcL (140-400); Red Blood Count 4.62 M/mcL (3.82-4.97); Red Cell Distribution Width 15.4 % (11.5-14.5); Segmented Neutrophils % 66.6 %; White Blood Count 3.5 K/mcL (4.3-11.1)
[2020-12-28 06:25] LABS: BUN/Creatinine Ratio 13 (6-26); Blood Urea Nitrogen 12 mg/dL (8-23); Calcium 9.3 mg/dL (8.6-10.3); Carbon Dioxide 29 mEq/L (23-29); Chloride 98 mEq/L (98-107); Glucose 123 mg/dL (70-105); Osmolality,Calculated 277 (280-300); Potassium 3.7 mEq/L (3.5-5.1); Sodium 133 mEq/L (136-145); eGFR For African Americans > 60 (> 60); eGFR For Non-African Americans > 60 (> 60)
[2020-12-28] MEDS: Insulin LISPRO 300 UNITS/3 ML VIAL SUBQ SCH ×2 (07:18→12:49)
[2020-12-28] MEDS: Budesonide/Formoterol 160/4.5 1 PUFF INH IH SCH (07:23)
[2020-12-28] MEDS: Aspirin 81 MG TAB.CHEW PO SCH (09:07)
[2020-12-28] MEDS: FLUoxetine 20 MG CAPSULE PO SCH (09:07)
[2020-12-28] MEDS: Loratadine 10 MG TABLET PO SCH (09:08)
[2020-12-28] MEDS: Cyanocobalamin (B-12) 1,000 MCG TABLET PO SCH (09:08)
[2020-12-28] MEDS: Sennosides/Docusate Sodium TABLET PO SCH (09:08)
[2020-12-28] MEDS: Anastrozole 1 MG TABLET PO SCH (09:08)
[2020-12-28] MEDS: Nicotine 7 MG PATCH.TD24 TD SCH (09:09)
[2020-12-28] MEDS: Gabapentin 300 MG CAPSULE PO SCH ×2 (09:09→16:05)
[2020-12-28] MEDS ORDERED: Acetaminophen 325 MG TABLET PO PRN (10:26)
[2020-12-28 11:20] VITALS: BP 148/82
== END 2020-12-28 16:36 | disposition home or self-care (01) ==
LOC: EMEROOARM 11:04 → 3BNU 11:04 → SUATTDRO 14:15 → 3BNU 15:07
PROVIDERS: ADMIT Internal Medicine; ATTEND Registered Nurse

== ENCOUNTER 2021-04-17 15:28 | Observation (INO) ==
[2021-04-17 15:53] LABS: Hematocrit 40.9 % (35.3-44.9); Mean Corpuscular HGB Conc 29.3 g/dL (31.6-35.5); Mean Corpuscular Hemoglobin 23.9 pg (28.0-33.3); Mean Corpuscular Volume 81.3 fL (83.0-100.0); Mean Platelet Volume 9.2 fL (9.4-12.4); Platelet Count 144 K/mcL (140-400); Red Blood Count 5.03 M/mcL (3.82-4.97); Red Cell Distribution Width 21.9 % (11.5-14.5); White Blood Count 3.6 K/mcL (4.3-11.1)
[2021-04-17 16:01] LABS: Prothrombin Time 11.4 Seconds (9.4-12.1)
[2021-04-17 16:03] LABS: Activated Partial Thrombo Time 28.4 Seconds (26.0-36.0)
[2021-04-17 16:11] LABS: BUN/Creatinine Ratio 13 (6-26); Blood Urea Nitrogen 15 mg/dL (8-23); Calcium 8.8 mg/dL (8.6-10.3); Carbon Dioxide 31 mEq/L (23-29); Chloride 97 mEq/L (98-107); Glucose 224 mg/dL (70-105); Osmolality,Calculated 286 (280-300); Potassium 3.8 mEq/L (3.5-5.1); Sodium 134 mEq/L (136-145); eGFR For African Americans 59 (> 60); eGFR For Non-African Americans 48 (> 60)
[2021-04-17 16:12] LABS: Troponin I < 0.03 ng/mL (< 0.04)
[2021-04-17] MEDS ORDERED: Ondansetron ODT 4 MG TAB.RAPDIS SL PRN (17:44)
[2021-04-17] MEDS ORDERED: Melatonin 3 MG TABLET PO PRN (17:44)
[2021-04-17] MEDS ORDERED: Ibuprofen 400 MG TABLET PO PRN (17:44)
[2021-04-17] MEDS ORDERED: Naloxone 0.4 MG/ML INJ IVP PRN (17:44)
[2021-04-17 18:28] LABS: Estimated Average Glucose 151 mg/dl; Hemoglobin A1C 6.9 %
[2021-04-17 18:33] LABS: INR 1.1
[2021-04-17 18:36] LABS: Activated Partial Thrombo Time 30.2 Seconds (26.0-36.0)
[2021-04-17 18:48] LABS: Chol/HDL Ratio 4.3 (0-4.9); Magnesium 1.8 mg/dL (1.6-2.6); Phosphorous 3.5 mg/dL (2.7-4.5)
[2021-04-17 19:01] LABS: Thyroid Stimulating Hormone 1.714 mcIU/mL (0.340-5.600)
[2021-04-17] MEDS ORDERED: *HR* Dextrose 50 % in Water (Syg) 50 ML SYRINGE IVP PRN (21:14)
[2021-04-17] MEDS ORDERED: D5% in Water 1,000 ML IVC PRN (21:14)
[2021-04-17] MEDS ORDERED: Dextrose Gel 15 GM/37.5 ML TUBE PO PRN ×2 (21:14)
[2021-04-17] MEDS ORDERED: Insulin LISPRO 300 UNITS/3 ML VIAL SUBQ SCH (21:15)
[2021-04-17] MEDS: Aspirin Enteric Coated 81 MG Tablet PO SCH (21:39)
[2021-04-18 00:30] VITALS: O2SAT 96
[2021-04-18 05:56] LABS: INR 1.1; Prothrombin Time 12.3 Seconds (9.4-12.1)
[2021-04-18 06:18] VITALS: BP 174/91; PULSE 73; TEMP 98.2
[2021-04-18 06:33] LABS: Alanine Aminotransferase 13 Units/L (7-52); Albumin 3.6 g/dL (3.5-5.7); Albumin/Globulin Ratio 1.4 (1.1-2.2); Alkaline Phosphatase 58 Units/L (34-104); Aspartate Amino Transferase 16 Units/L (13-39); BUN/Creatinine Ratio 13 (6-26); Bilirubin,Total 0.3 mg/dL (0.3-1.0); Blood Urea Nitrogen 14 mg/dL (8-23); Calcium 8.8 mg/dL (8.6-10.3); Carbon Dioxide 24 mEq/L (23-29); Chloride 100 mEq/L (98-107); Chol/HDL Ratio 4.6 (0-4.9); Cholesterol 138 mg/dL (< 200); Globulin 2.5 g/dL (2.4-3.5); Glucose 207 mg/dL (70-105); HDL Cholesterol 30 mg/dL (40-59); LDL Cholesterol,Calculated 38 mg/dL (< 100); Osmolality,Calculated 287 (280-300); Potassium 4.2 mEq/L (3.5-5.1); Sodium 135 mEq/L (136-145); Total Protein 6.1 g/dL (6.4-8.9); Triglycerides 351 mg/dL (< 150); Troponin I < 0.03 ng/mL (< 0.04); eGFR For African Americans > 60 (> 60); eGFR For Non-African Americans 53 (> 60)
[2021-04-18 07:16] LABS: Estimated Average Glucose 151 mg/dl; Hemoglobin A1C 6.9 %
[2021-04-18] MEDS ORDERED: Insulin LISPRO 300 UNITS/3 ML VIAL SUBQ SCH (07:30)
[2021-04-18] MEDS: Aspirin Enteric Coated 81 MG Tablet PO SCH (08:02)
[2021-04-18] MEDS ORDERED: *HR* HYDROcodone/Acet 5/325 mg TABLET PO PRN (08:15)
[2021-04-18] MEDS ORDERED: tiZANidine 4 MG TABLET PO PRN (08:15)
[2021-04-18] MEDS ORDERED: Furosemide 20 MG TABLET PO SCH (09:00)
[2021-04-18] MEDS ORDERED: amLODIPine 5 MG TABLET PO SCH (09:00)
[2021-04-18] MEDS ORDERED: levETIRAcetam 250 MG TABLET PO SCH (18:00)
[2021-04-18] MEDS ORDERED: QUEtiapine Fumarate 25 MG TABLET PO SCH (21:00)
== END 2021-04-18 10:50 | disposition home or self-care (01) ==
LOC: EMEROOARM 15:28 → 3ANU 15:28 → SUATTDRO 17:08 → 3ANU 18:23
PROVIDERS: ADMIT Family Medicine; ATTEND Internal Medicine